=== PATIENT | male | born 1990 | race Caucasian/White ===

== ENCOUNTER 2022-12-29 13:34 | Inpatient (IN) | payer OTHER, SELFPAY ==
--- NOTE | ~2022-12-29 | XR_ITS ---
EXAMINATION: XR ELBOW, LEFT CLINICAL INFORMATION: Trauma. Question dislocation. COMPARISON: None available. TECHNIQUE: Three views of the left elbow. FINDINGS: There is a displaced and angulated comminuted fracture of the distal shaft humerus. This does not involve the articular surface of bone. The elbow joint is maintained. There is no dislocation. XR/XR elbow LT min 3V IMPRESSION: Comminuted fracture of the distal shaft of humerus.
--- NOTE | ~2022-12-29 | FL_ITS ---
EXAMINATION: XR FLUOROSCOPY WITH IMAGES CLINICAL INFORMATION: Humerus fracture COMPARISON: Previous x-ray and CT from yesterday TECHNIQUE: TOTAL DOSE 3.35 MGY DAP 0.0583 MGYM/2 TIME 0.7 MIN LEFT SIDE PERFORMED BY Images: 4. FINDINGS: Images demonstrate plates and screws transfixing the comminuted displaced left distal humeral shaft fracture with improved alignment. FL/FL guidance in OR IMPRESSION: Fluoroscopy guidance for ORIF of left humeral shaft fracture.
--- NOTE | ~2022-12-29 | CT_ITS ---
EXAMINATION: CT LEFT HUMERUS WITHOUT CONTRAST CLINICAL INFORMATION: Fall. Abnormal x-ray COMPARISON: Radiographs left elbow earlier same day TECHNIQUE: Multidetector CT examination of the left humerus is performed without contrast. This CT examination was performed using dose optimization techniques as appropriate, variously including the following: *Automated exposure control *Adjustment of mA and/or kV according to patient size (this includes techniques or standardized protocols for targeted exams where dose is matched to indication/reason for exam; i.e. extremities or head) *Use of iterative reconstruction technique DLP: 216 mGy-cm FINDINGS: Digital welding lead burner: There is a comminuted displaced distal humeral fracture. The proximal and mid humerus are intact. The visualized proximal ulna and radius are intact. The fracture does not appear to involve the articular surfaces of the elbow. There is an angulated comminuted displaced fracture of the distal diaphysis of the humerus. There is angulation apex lateral. CT/CT humerus LT wo IV con IMPRESSION: 1. Displaced comminuted distal humeral fracture without definite involvement of the articular surfaces around the elbow.
[2022-12-29 14:05] VITALS: BP 132/89; BP 138/94; PULSE 75; PULSE 80; RESP 16; O2SAT 100; O2SAT 97; BMI 27.2
--- NOTE | 2022-12-29 14:14 | PC.NURSE ---
ELIAZAR fom home where he was working in his garage and something fell, pt attempted to catch it with his left arm and reports his left elbow ? snapped back. pt reports no feeling in his left hand, pt has + pulses. was given 100mcg of fentanyl by EMS
[2022-12-29] MEDS: HYDROmorphone HCl 1 MG/ML SYRINGE IVPUSH ×3 (14:33→18:41)
--- NOTE | 2022-12-29 14:35 | ED.EXTPRO ---
HPI - Extremity Problem General Chief complaint: Extremity Injury, Upper Stated complaint: ARM INJURY S/P MOVING LARGE BEAM Time Seen by Provider: 12/29/22 14:15 Source: patient, family and EMS Mode of arrival: EMS Limitations: no limitations History of Present Illness HPI Narrative: 32 yo male hx of opiate use disorder - was working and tried to grab 40 to 50lb pole when it snapped his left arm back now has severe pain in left elbow upper arm area. He is R hand dominant. He was given 100mcg of fentanyl by EMS but still in a lot of pain. MD Complaint: extremity pain and extremity swelling Onset (ago): minute(s) (just prior to arrival) Pain Consistency: constant Location: left and upper extremity Quality: aching, dull and constant Radiation: none Relieving factors: immobilization Exacerbating factors: range of motion and palpation Associated symptoms: denies other symptoms Context: other (snapped while trying to catch heavy pole) Related Data Allergies Allergy/AdvReac Type Severity Reaction Status Date / Time No Known Allergies Allergy Verified 12/29/22 14:08 Review of Systems Review of Systems: Constitutional : No Fever, No Chills Cardiovascular : No Chest Pain, No SOB Respiratory : No Cough, No Dyspnea Gastrointestinal : No Nausea, No Vomiting, No Diarrhea, No abdominal Pain Genitourinary : No Dysuria, No Hematuria Musculoskeletal : positive joint pain, No Myalgias, pos Joint Swelling Skin : No Skin lacerations, No rash Neuro : No Weakness, No Numbness, No Loss of Consciousness, No Dizziness, No Headache Psych : No Anxiety/Panic, No Depression All other systems reviewed and are negative [facility] Past Medical History Attestation statement: The following information was validated with the patient. Medical History At risk for abuse of opiates Social History Social History Alcohol intake: current Smoked in Last 30 Days: Yes Use of substances other than those prescribed or required for medical reasons: Yes Substance Use Type: Marijuana Advance Directives: No Advance Directives Information Provided: No Physical Exam Vital Signs: Vital Signs: Last Vital Signs Pulse 85 12/29/22 14:59 Resp 12 12/29/22 14:59 BP 138/94 H 12/29/22 14:05 Pulse Ox 95 12/29/22 14:59 O2 Del Method Room Air 12/29/22 14:59 BMI result Body Mass Index 27.2 Appearance: Alert. Oriented X3. in pain mild acute distress. anxious Eyes: Pupils equal, round and reactive to light. ENT: Pharynx normal. Neck: Normal inspection. Neck supple. CVS: Normal heart rate and rhythm. Pulses normal. Respiratory: No respiratory distress. Breath sounds normal. Abdomen: Soft and nontender. Skin: Skin warm and dry. Normal skin color. Normal skin turgor. Extremities: No lower extremity edema. L lower humerus area there is a contusion noted and deformity no elbow or shoulder dislocation noted, no wrist or shoulder pain, distal NV intact. Neuro: Oriented X 3. No motor deficit. No sensory deficit. Course Course Course Narrative: pain improved with IV dilaudid 2 doses Medications Administered Discontinued Medications Generic Name Dose Route Start Last Admin Trade Name Freq PRN Reason Stop Dose Admin Hydromorphone HCl 1 mg 12/29/22 14:25 12/29/22 14:33 Hydromorphone Hcl 1 Mg/Ml Syringe IVPUSH 12/29/22 14:26 1 mg ONCE ONE Administration Protocol Hydromorphone HCl 1 mg 12/29/22 15:27 12/29/22 15:54 Hydromorphone Hcl 1 Mg/Ml Syringe IVPUSH 12/29/22 15:28 1 mg ONCE ONE Administration Protocol Ketorolac Tromethamine 15 mg 12/29/22 15:27 12/29/22 15:56 Ketorolac Tromethamine 15 Mg/Ml Vial IVPUSH 12/29/22 15:28 15 mg ONCE ONE Administration Medical Decision Making Medical Decision Making [facility] Narrative: 32 yo male R hand dominant here with L arm pain with almost like arm wrestling injury mechanism injury. At this time he is NV intact. I am going to order xrays and IV dilaudid put in sling. 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 Miranda to admit) Lab Data [facility] Lab Attestation statement: I reviewed the patient's lab results. Independent Interpretation I performed an independent interpretation of an: Plain X-Ray (humerus fx) Radiology Impression Discussion of test interpretation with radiology: I have reviewed the radiologist's reading. Independent Historian Clinical information obtained from an independent historian. History obtained from or confirmed by: EMS Critical Care Time Critical Care Time Critical Care Time: Yes Total Critical Care Time: 31 Attestation: repeat IV doses of pain medications. I attest to this time spent taking care of the patient Discharge Plan Discharge Clinical Impression: Fracture, humerus Qualifiers: Encounter type: initial encounter Humerus Location: distal Fracture type: closed Fracture morphology: unspecified fracture morphology Laterality: left Qualified Code(s): S42.402A - Unspecified fracture of lower end of left humerus, initial encounter for closed fracture Patient Disposition: Admitted As Inpatient Referrals: Edgar Miranda MD [Physician] - Stand Alone Forms: Work/School Release
[2022-12-29 14:59] VITALS: PULSE 85; RESP 12; O2SAT 95
[2022-12-29] MEDS: Ketorolac Tromethamine 15 MG/ML VIAL IVPUSH (15:56)
--- NOTE | 2022-12-29 16:44 | PC.NURSE ---
Dr. Miranda at bedside applying sling
[2022-12-29 18:03] LABS: MANUAL DIFF FLAG NO
[2022-12-29 18:05] VITALS: BP 112/58; PULSE 80; RESP 16; O2SAT 97
[2022-12-29 18:16] LABS: Prothrombin Time 12.1 SEC (11.1-13.3)
[2022-12-29 18:22] LABS: Anion Gap 14 (12-20); Blood Urea Nitrogen 15 mg/dL (9-16); Calcium 9.5 mg/dL (8.4-10.2); Carbon Dioxide 27 mmol/L (22-29); Chloride 102 mmol/L (96-108); Creatinine Clr Calc Pharmacy 125.2; Estimated Glomerular Filt Rate > 60; Glucose Random 107 mg/dL (60-115); Potassium 4.1 mmol/L (3.3-5.1); Sodium 139 mmol/L (135-145)
[2022-12-29 18:28] LABS: Basophils Absolute Auto 0.1 X10*3/uL (0.0-0.2); Basophils Percent Auto 0.4 % (0-2); Eosinophils Percent Auto 0.1 % (0-4); Hemoglobin 13.5 g/dl (14.0-18.0); Imm Gran Abs Auto 0.08 X10*3/uL (0.00-0.03); Imm Gran Pct Auto 0.5 % (0.0-0.4); Lymphocytes Absolute Auto 1.5 X10*3/uL (1.2-4.9); Lymphocytes Percent Auto 9.4 % (20-40); Mean Corpuscular HGB Conc 34.6 g/dl (31.0-36.0); Mean Corpuscular Hemoglobin 31.1 pg (27.0-33.0); Mean Corpuscular Volume 89.9 fL (80.0-98.0); Mean Platelet Volume 10.3 fL (9.4-12.4); Monocytes Percent Auto 6.2 % (2-11); Neutrophils Percent Auto 83.4 % (45-73); Platelet Count 244 X10*3/uL (160-400); Red Blood Count 4.34 X10*6/uL (4.60-5.80); Red Cell Distribution Width 12.1 % (11.0-16.0); White Blood Count 15.6 X10*3/uL (4.8-10.8)
[2022-12-29 18:42] VITALS: BP 108/64; PULSE 64; RESP 12; O2SAT 95
--- NOTE | 2022-12-29 19:22 | PM.EVENT ---
Event Note Date of Service: 12/29/22 Event Note: Patient admitted to the orthopedic service. Plan for ORIF left humerus tomorrow morning. NPO after midnight. Sling applied. Formal note to follow. Time Spent With Patient Time: Total time managing care of this patient today ____ minutes.
[2022-12-29] MEDS: ondansetron HCL 4 MG/2 ML VIAL IVPUSH (19:26)
[2022-12-29 19:32] VITALS: BP 129/77; PULSE 76; RESP 16; TEMP 36.4; O2SAT 100
[2022-12-29] MEDS: Lactated Ringers 1,000 ML 100 ML IVCONT (20:35)
[2022-12-29] MEDS: Celecoxib 200 MG CAPSULE PO (20:35)
[2022-12-29] MEDS: Docusate Sodium 100 MG CAPSULE PO (20:35)
[2022-12-29] MEDS: oxyCODONE HCl ER 10 MG TAB.ER.12H PO (20:35)
--- NOTE | 2022-12-29 21:00 | P.CONHOSP_ITS ---
History of Present Illness Data of Consult Service Date: 12/29/22 Primary Care Provider: None Physician HPI Reason for consult: Medical management Patient is a 32-year-old male with a PMH significant for polysubstance use disorder including alcohol and prescription opioids, IBS, and depression who was admitted to the hospital for a displaced, comminuted fracture of the distal shaft of left humerus. Patient was admitted under Orthopedics and underwent ORIF of left humerus, POD0. Hospitalist consult for medical management. Patient seen and evaluated at bedside, resting comfortably in bed. Patient complains of left elbow pain and cramping of biceps. States pain is reasonably controlled with current pain management. Denies numbness or tingling in his left fingers. Is now able to move all extremities. Patient otherwise has no acute medical complaints at this time. Denies chest pain/pressure, palpitations. No shortness of breath. Denies fever, chills, nausea, vomiting, abdominal pain. Denies calf pain. Vital signs stable. Patient reports that he has a distant history of prescription opioid abuse, says he has not abused opioids in over 10 years. Has a more recent history of heavy alcohol use, though he has now been sober for 2 years. Patient says he feels confident in his recovery though would appreciate any Addiction Medicine input as to safe use of opioid analgesics he will be discharged on. Patient currently plans on giving his prescription to his mother so she can distribute and keep track of his medication. Review of Systems 2 Review of Systems: Left elbow pain Left upper extremity muscle cramping Denies numbness and tingling in left upper extremity No chest pain/pressure, palpitations Denies shortness of breath No fever, chills, nausea, vomiting, abdominal pain PMFSH Medical History At risk for abuse of opiates Social History Household Members: None Housing: House Do you presently have visiting nurse or other home services: No Alcohol intake: current Patient Tobacco Use Status: Current everyday Tobacco user e-Cigarette/Vaping Use: Currently Using Substance Use Type: Marijuana Meds Allergies Allergy/AdvReac Type Severity Reaction Status Date / Time No Known Allergies Allergy Verified 12/29/22 14:08 Active Medications: Current Medications Acetaminophen (Acetaminophen 325 Mg Tablet) 650 mg PO Q6H PRN PRN Reason: Pain, Mild (Pain Scale 1-3) Celecoxib (Celecoxib 200 Mg Capsule) 200 mg PO BID [facility] Last Admin: 12/29/22 20:35 Dose: 200 mg Docusate Sodium (Docusate Sodium 100 Mg Capsule) 100 mg PO BID [facility] Last Admin: 12/29/22 20:35 Dose: 100 mg Escitalopram Oxalate (Escitalopram Oxalate 10 Mg Tablet) 10 mg PO DAILY [facility] Hydromorphone HCl (Hydromorphone Hcl 0.5 Mg/0.5 Ml Syringe) 0.25 mg IVPUSH Q4H PRN; Protocol PRN Reason: Pain, Severe (Pain Scale 7-10) Lactated Ringer's (Lr) 1,000 mls @ 100 mls/hr IVCONT .Q10H [facility] Last Infusion: 12/29/22 20:40 Dose: 0 mls/hr Cefazolin Sodium/Dextrose (Ancef) 2 gm in 50 mls @ 100 mls/hr IV PREOP ONE Stop: 12/30/22 09:35 Omeprazole (Omeprazole 20 Mg Capsule.Dr) 20 mg PO DAILY [facility] Ondansetron HCl (Ondansetron Hcl 4 Mg/2 Ml Vial) 4 mg IVPUSH Q8H PRN PRN Reason: Nausea and Vomiting Oxycodone HCl (Oxycodone Hcl Immed Release 5 Mg Tablet) 5 mg PO Q4H PRN PRN Reason: Pain, Moderate(Pain Scale 4-6) Oxycodone HCl (Oxycodone Hcl Er 10 Mg Tab.Er.12h) 10 mg PO BID [facility] Last Admin: 12/29/22 20:35 Dose: 10 mg Sodium Chloride (0.9 % Sodium Chloride Flush 3 Ml Syringe) 3 ml IVFLUSH QSHIFT [facility] Home Medications Medication Instructions Recorded Confirmed Last Taken Type escitalopram oxalate 10 mg tablet 10 mg PO DAILY 12/29/22 12/29/22 12/29/22 History (Lexapro) omeprazole magnesium 20 mg 20 mg PO DAILY 12/29/22 12/29/22 12/29/22 History tablet,delayed release (Prilosec OTC) Physical Exam 2 Vital Signs and Narrative: Vital Signs: Last Vital Signs Temp 97.6 F 12/29/22 19:32 Pulse 76 12/29/22 19:32 Resp 16 12/29/22 19:32 BP 129/77 12/29/22 19:32 Pulse Ox 100 12/29/22 19:32 O2 Del Method Room Air 12/29/22 19:32 BMI result Body Mass Index 27.2 General: AOx3, no acute distress Resp: CTA bilaterally CVS: S1, S2, RRR GI: +BS, NT, no distention Skin: No rash Neuro: Cranial nerves II-XII grossly intact bilaterally. Motor grossly intact bilaterally Extremities: No edema. Left arm in sling with left elbow and forearm and cast Psych: Appropriate affect Results Labs 12/29/22 17:58 12/29/22 17:58 Labs: Laboratory Results - last 24 hr 12/29/22 17:58 MCV 89.9 MCH 31.1 MCHC 34.6 RDW 12.1 Plt Count 244 MPV 10.3 Immature Gran % (Auto) 0.5 H Neut % (Auto) 83.4 H Lymph % (Auto) 9.4 L Bennett % (Auto) 6.2 Eos % (Auto) 0.1 Baso % (Auto) 0.4 Lymph # (Auto) 1.5 Bennett # (Auto) 1.0 Eos # (Auto) 0.0 Baso # (Auto) 0.1 Abs Immat Gran (auto) 0.08 H Absolute Neuts (auto) 13.0 H Absolute Nucleated RBC 0.000 Nucleated RBC % (auto) 0.0 PT 12.1 INR 1.0 Anion Gap 14 Estim Creat Clear Calc 125.2 Estimated GFR > 60 Random Glucose 107 Calcium 9.5 Imaging Radiologist's Impressions: Impressions Elbow X-Ray 12/29/22 14:50 IMPRESSION: Comminuted fracture of the distal shaft of humerus. Humerus CT 12/29/22 17:05 IMPRESSION: 1. Displaced comminuted distal humeral fracture without definite involvement of the articular surfaces around the elbow. Assessment and Plan (1) Fracture, humerus: Qualifiers: Encounter type: initial encounter Fracture morphology: unspecified fracture morphology Fracture type: closed Humerus Location: distal L aterality: left Qualified Code(s): S42.402A - Unspecified fracture of lower end of left humerus, initial encounter for closed fracture Status: Acute Plan Patient is a 32-year-old male with a PMH significant for polysubstance use disorder including alcohol and prescription opioids, IBS, and depression who was admitted to the hospital for a displaced, comminuted fracture of the distal shaft of left humerus. Patient was admitted under Orthopedics and underwent ORIF of left humerus, POD0. Hospitalist consult for medical management. ORIF of left humerus Plan as per Orthopedics History of prescription opioid addiction Patient states he has not abused opioids in 10 years Feels confident in his recovery Would appreciate Addiction Medicine consult to discuss plan for responsible opioid use upon discharge Currently plans on giving his mother any home opioids he may be discharged with IBS Currently diet controlled Continue omeprazole Depression Continue escitalopram Thank you for allowing us to participate in the care of this patient. Signing off at this time. Please let us know if there are any acute complaints or questions. Time Spent With Patient Time: Total time managing care of this patient today ____ minutes.
[2022-12-30] VITALS (16 sets, daily range): BP systolic 111–164; BP diastolic 71–109; PULSE 57–125; RESP 16–22; TEMP 35.8–37.2; O2SAT 94–99
[2022-12-30] MEDS: oxyCODONE HCl Immed Release 5 MG TABLET PO ×4 (00:13→18:16)
[2022-12-30] MEDS: Acetaminophen 325 MG TABLET 650 MG PO ×2 (00:14→07:56)
[2022-12-30] MEDS: HYDROmorphone HCl 0.5 MG/0.5 ML SYRINGE 0.25 MG IVPUSH (04:10)
[2022-12-30 05:56] LABS: MANUAL DIFF FLAG NO
[2022-12-30 06:00] LABS: Basophils Percent Auto 0.4 % (0-2); Eosinophils Absolute Auto 0.2 X10*3/uL (0.0-0.4); Hemoglobin 12.7 g/dl (14.0-18.0); Imm Gran Abs Auto 0.05 X10*3/uL (0.00-0.03); Imm Gran Pct Auto 0.6 % (0.0-0.4); Lymphocytes Absolute Auto 2.1 X10*3/uL (1.2-4.9); Lymphocytes Percent Auto 23.1 % (20-40); Mean Corpuscular HGB Conc 34.3 g/dl (31.0-36.0); Mean Corpuscular Hemoglobin 31.4 pg (27.0-33.0); Mean Corpuscular Volume 91.6 fL (80.0-98.0); Mean Platelet Volume 10.4 fL (9.4-12.4); Monocytes Percent Auto 10.6 % (2-11); Neutrophils Absolute Auto 5.7 x10*3/uL (2.0-8.3); Neutrophils Percent Auto 63.3 % (45-73); Platelet Count 216 X10*3/uL (160-400); Red Blood Count 4.04 X10*6/uL (4.60-5.80); Red Cell Distribution Width 12.3 % (11.0-16.0)
[2022-12-30 06:17] LABS: Anion Gap 11 (12-20); Blood Urea Nitrogen 19 mg/dL (9-16); Calcium 9.5 mg/dL (8.4-10.2); Carbon Dioxide 26 mmol/L (22-29); Chloride 106 mmol/L (96-108); Creatinine Clr Calc Pharmacy 126.6; Estimated Glomerular Filt Rate > 60; Glucose Fasting 99 mg/dL (60-99); Potassium 3.8 mmol/L (3.3-5.1); Sodium 139 mmol/L (135-145)
[2022-12-30] MEDS: Celecoxib 200 MG CAPSULE PO ×2 (07:54→21:23)
[2022-12-30] MEDS: Docusate Sodium 100 MG CAPSULE PO ×2 (07:55→21:23)
[2022-12-30] MEDS: Omeprazole 20 MG CAPSULE.DR PO (07:55)
[2022-12-30] MEDS: oxyCODONE HCl ER 10 MG TAB.ER.12H PO ×2 (07:55→21:23)
[2022-12-30] MEDS: Escitalopram Oxalate 10 MG TABLET PO (07:55)
--- NOTE | 2022-12-30 08:16 | P.HPOP_ITS ---
History of Present Illness History of Present Illness Date of Service: 12/30/22 Chief complaint: left humerus fx Narrative: Karlo Chaudhary is a 32 year old male who sustained an injury to his left humerus while trying to catch a falling post. He presented with deformity and pain and radiographs revealed a comminuted distal humerus fracture. He denies other injury or other medical problems except a remote history of etoh addiction. Review of Systems 2 Review of Systems: Yes all other systems are reviewed and are negative PMFSH Past Medical History Medical History At risk for abuse of opiates Functional capacity: independent ambulation Family History Family history: reviewed and not pertinent Social History Social History Household Members: None Housing: House Do you presently have visiting nurse or other home services: No Alcohol intake: current Patient Tobacco Use Status: Current everyday Tobacco user e-Cigarette/Vaping Use: Currently Using Substance Use Type: Marijuana Meds Allergies Allergy/AdvReac Type Severity Reaction Status Date / Time No Known Allergies Allergy Verified 12/29/22 14:08 Active Medications: Current Medications Acetaminophen (Acetaminophen 325 Mg Tablet) 650 mg PO Q6H PRN PRN Reason: Pain, Mild (Pain Scale 1-3) Last Admin: 12/30/22 07:56 Dose: 650 mg Celecoxib (Celecoxib 200 Mg Capsule) 200 mg PO BID [facility] Last Admin: 12/30/22 07:54 Dose: 200 mg Docusate Sodium (Docusate Sodium 100 Mg Capsule) 100 mg PO BID [facility] Last Admin: 12/30/22 07:55 Dose: 100 mg Escitalopram Oxalate (Escitalopram Oxalate 10 Mg Tablet) 10 mg PO DAILY [facility] Last Admin: 12/30/22 07:55 Dose: 10 mg Hydromorphone HCl (Hydromorphone Hcl 0.5 Mg/0.5 Ml Syringe) 0.25 mg IVPUSH Q4H PRN; Protocol PRN Reason: Pain, Severe (Pain Scale 7-10) Last Admin: 12/30/22 04:10 Dose: 0.25 mg Lactated Ringer's (Lr) 1,000 mls @ 100 mls/hr IVCONT .Q10H [facility] Last Admin: 12/30/22 06:03 Dose: Not Given Cefazolin Sodium/Dextrose (Ancef) 2 gm in 50 mls @ 100 mls/hr IV PREOP ONE Stop: 12/30/22 09:35 Omeprazole (Omeprazole 20 Mg Capsule.Dr) 20 mg PO DAILY [facility] Last Admin: 12/30/22 07:55 Dose: 20 mg Ondansetron HCl (Ondansetron Hcl 4 Mg/2 Ml Vial) 4 mg IVPUSH Q8H PRN PRN Reason: Nausea and Vomiting Oxycodone HCl (Oxycodone Hcl Immed Release 5 Mg Tablet) 5 mg PO Q4H PRN PRN Reason: Pain, Moderate(Pain Scale 4-6) Last Admin: 12/30/22 07:55 Dose: 5 mg Oxycodone HCl (Oxycodone Hcl Er 10 Mg Tab.Er.12h) 10 mg PO BID [facility] Last Admin: 12/30/22 07:55 Dose: 10 mg Sodium Chloride (0.9 % Sodium Chloride Flush 3 Ml Syringe) 3 ml IVFLUSH QSHIFT [facility] Last Admin: 12/30/22 07:54 Dose: Not Given Home Medications Medication Instructions Recorded Confirmed Last Taken Type escitalopram oxalate 10 mg tablet 10 mg PO DAILY 12/29/22 12/29/22 12/29/22 History (Lexapro) omeprazole magnesium 20 mg 20 mg PO DAILY 12/29/22 12/29/22 12/29/22 History tablet,delayed release (Prilosec OTC) Physical Exam 2 Vital Signs: Vital Signs: Last Vital Signs Temp 97.0 F 12/30/22 07:34 Pulse 57 12/30/22 07:34 Resp 16 12/30/22 07:34 BP 129/80 12/30/22 07:34 Pulse Ox 97 12/30/22 07:34 O2 Del Method Room Air 12/30/22 07:34 BMI result Body Mass Index 27.2 Const: General: cooperative, healthy appearing, no acute distress and well groomed Orientation/consciousness: oriented to person and oriented to place HEENT: Head: Yes normal to inspection, Yes normocephalic and Yes atraumatic Eyes: General: appearance normal, both eyes and all related structures A lignment and Position: alignment normal Conjunctivae: conjunctivae normal EOM: EOMs intact bilaterally Neck: Neck: Yes normal visual inspection and Yes trachea midline Resp: Other: No rerpiratory distress Effort & Inspection: normal respiratory effort and able to speak in complete sentences Cardio: Other: Palpable radial pulse with no appreciable rythmic abnormalities GI: Other: No abdominal distension Back/Spine/Pelvis: Cervical Spine: normal cervical lordosis and cervical ROM normal Skin: General skin exam: no rashes or lesions noted Neuro: General: oriented to person, oriented to place and gait normal Extrem: Other: deformity left distal humerus. intact epl/fdp/io rp+2 skin intact Results Labs 12/30/22 05:46 12/30/22 05:46 Labs: Abnormal lab results 12/29/22 12/30/22 Range/Units 17:58 05:46 WBC 15.6 H (4.8-10.8) X10*3/uL RBC 4.34 L 4.04 L (4.60-5.80) X10*6/uL Hgb 13.5 L 12.7 L (14.0-18.0) g/dl Hct 39.0 L 37.0 L (42.0-52.0) % Immature Gran % (Auto) 0.5 H 0.6 H (0.0-0.4) % Neut % (Auto) 83.4 H (45-73) % Lymph % (Auto) 9.4 L (20-40) % Abs Immat Gran (auto) 0.08 H 0.05 H (0.00-0.03) X10*3/uL Absolute Neuts (auto) 13.0 H (2.0-8.3) x10*3/uL Anion Gap 11 L (12-20) BUN 19 H (9-16) mg/dL H & H 12/29/22 12/30/22 Range/Units 17:58 05:46 Hgb 13.5 L 12.7 L (14.0-18.0) g/dl Hct 39.0 L 37.0 L (42.0-52.0) % Coagulation 12/29/22 Range/Units 17:58 INR 1.0 (0.9-1.1) All other labs normal. Diagnostic results Shoulder x-ray: image reviewed (comminuted distal humeral shaft fracture with severe displacement but no intra-articular extension) Assessment and Plan (1) Fracture, humerus: Qualifiers: Encounter type: initial encounter Fracture morphology: unspecified fracture morphology Fracture type: closed Humerus Location: distal L aterality: left Qualified Code(s): S42.402A - Unspecified fracture of lower end of left humerus, initial encounter for closed fracture Status: Acute Plan THis is a healthy 32 yo with a comminuted left humerus fracture. He is RHD. He is otherwise healthy. I splinted and provisionally reduced the fracture. I recommend ORIF. I discussed the procedure iwth the patient and his mom and described and discussed the risks benefits and alternatives including but not limited to the risk of pain, infection, stiffness, NERVE INJURY and the need for further surgery as well as potential medical complications such as blood clots, pulmonary embolism and cardiac complications. He expressed understanding and we will proceed forward. Time Spent With Patient Time: Total time managing care of this patient today __45__ minutes. Quality Stroke Does the patient have a stroke diagnosis?: No VTE Prior VTE?: No VTE Risk Level:: Surgical - low VTE Device Contraindication: N/A - Device Ordered VTE Drug Contraindication: Treatment Not Indicated Procedures Date of Service Date of Service: 12/30/22 Orthopedic Fracture Reduction left humerus: Time out performed: No Side: left Analgesia: none Technique: traction splint Post-reduction x-rays demonstrate: acceptable reduction Post-reduction neuro exam: intact Post-reduction vascular exam: intact Splint applied: Yes Patient tolerated procedure: well
--- NOTE | 2022-12-30 10:27 | P.CONAN_ITS ---
[facility] Active Problems Active Problems: All Active Problems (Updated 12/29/22 @ 15:23 by Michelle Hemphill DO) Fracture, humerus (Acute) Past Medical History Medical History At risk for abuse of opiates Functional capacity: independent ambulation Family History Family history of problems with anesthesia: No Social History Social History Household Members: None Housing: House Do you presently have visiting nurse or other home services: No Alcohol intake: current Patient Tobacco Use Status: Current everyday Tobacco user e-Cigarette/Vaping Use: Currently Using Substance Use Type: Marijuana Meds Allergies Allergy/AdvReac Type Severity Reaction Status Date / Time No Known Allergies Allergy Verified 12/29/22 14:08 Active Medications: Current Medications Acetaminophen (Acetaminophen 325 Mg Tablet) 650 mg PO Q6H PRN PRN Reason: Pain, Mild (Pain Scale 1-3) Last Admin: 12/30/22 07:56 Dose: 650 mg Celecoxib (Celecoxib 200 Mg Capsule) 200 mg PO BID [facility] Last Admin: 12/30/22 07:54 Dose: 200 mg Docusate Sodium (Docusate Sodium 100 Mg Capsule) 100 mg PO BID [facility] Last Admin: 12/30/22 07:55 Dose: 100 mg Escitalopram Oxalate (Escitalopram Oxalate 10 Mg Tablet) 10 mg PO DAILY [facility] Last Admin: 12/30/22 07:55 Dose: 10 mg Hydromorphone HCl (Hydromorphone Hcl 0.5 Mg/0.5 Ml Syringe) 0.25 mg IVPUSH Q4H PRN; Protocol PRN Reason: Pain, Severe (Pain Scale 7-10) Last Admin: 12/30/22 04:10 Dose: 0.25 mg Lactated Ringer's (Lr) 1,000 mls @ 100 mls/hr IVCONT .Q10H [facility] Last Admin: 12/30/22 06:03 Dose: Not Given Omeprazole (Omeprazole 20 Mg Capsule.Dr) 20 mg PO DAILY [facility] Last Admin: 12/30/22 07:55 Dose: 20 mg Ondansetron HCl (Ondansetron Hcl 4 Mg/2 Ml Vial) 4 mg IVPUSH Q8H PRN PRN Reason: Nausea and Vomiting Oxycodone HCl (Oxycodone Hcl Immed Release 5 Mg Tablet) 5 mg PO Q4H PRN PRN Reason: Pain, Moderate(Pain Scale 4-6) Last Admin: 12/30/22 07:55 Dose: 5 mg Oxycodone HCl (Oxycodone Hcl Er 10 Mg Tab.Er.12h) 10 mg PO BID [facility] Last Admin: 12/30/22 07:55 Dose: 10 mg Sodium Chloride (0.9 % Sodium Chloride Flush 3 Ml Syringe) 3 ml IVFLUSH QSHIFT [facility] Last Admin: 12/30/22 07:54 Dose: Not Given Home Medications Medication Instructions Recorded Confirmed Last Taken Type escitalopram oxalate 10 mg tablet 10 mg PO DAILY 12/29/22 12/29/22 12/29/22 History (Lexapro) omeprazole magnesium 20 mg 20 mg PO DAILY 12/29/22 12/29/22 12/29/22 History tablet,delayed release (Prilosec OTC) Exam Exam Date and Time: December 30, 2022 1027 Height,Weight and Vital Signs: Height 5 ft 11 in Weight 88.451 kg Last Vital Signs Temp 97.0 F 12/30/22 07:34 Pulse 57 12/30/22 07:34 Resp 16 12/30/22 07:34 BP 129/80 12/30/22 07:34 Pulse Ox 97 12/30/22 07:34 O2 Del Method Room Air 12/30/22 07:34 Pertinent Lab Results Pertinent Lab Results: Laboratory Tests 12/29/22 12/30/22 17:58 05:46 WBC 15.6 H 9.0 RBC 4.34 L 4.04 L Hgb 13.5 L 12.7 L Hct 39.0 L 37.0 L MCV 89.9 91.6 MCH 31.1 31.4 MCHC 34.6 34.3 RDW 12.1 12.3 Plt Count 244 216 MPV 10.3 10.4 Immature Gran % (Auto) 0.5 H 0.6 H Neut % (Auto) 83.4 H 63.3 Lymph % (Auto) 9.4 L 23.1 [place] % (Auto) 6.2 10.6 Eos % (Auto) 0.1 2.0 Baso % (Auto) 0.4 0.4 Lymph # (Auto) 1.5 2.1 [place] # (Auto) 1.0 1.0 Eos # (Auto) 0.0 0.2 Baso # (Auto) 0.1 0.0 Abs Immat Gran (auto) 0.08 H 0.05 H Absolute Neuts (auto) 13.0 H 5.7 Absolute Nucleated RBC 0.000 0.000 Nucleated RBC % (auto) 0.0 0.0 PT 12.1 INR 1.0 Sodium 139 139 Potassium 4.1 3.8 Chloride 102 106 Carbon Dioxide 27 26 Anion Gap 14 11 L BUN 15 19 H Creatinine 0.91 0.90 Estim Creat Clear Calc 125.2 126.6 Estimated GFR > 60 > 60 Random Glucose 107 Fasting Glucose 99 Calcium 9.5 9.5 Airway Mallampati Class: II TM Dist: >3cm Neck ROM: Full Heart: RRR Lungs: CTA Assessment and Plan Final Anesthetic Review Family History of Problems with Anesthesia: No ASA Class: II and Emergency Final Preanesthetic Review: Meds/Allgs Chart Reviewed and Consent Obtained/Reviewed Patient Risk: Low Procedure Risk: Low Assessment/Block/Sedation in SS: Assess/Block/Sedation-SS (left supraclavicular nerve block) Anesthetic Plan Anesthetic Plan: GA Disposition: Standard PACU
--- NOTE | 2022-12-30 10:29 | HO.ANESPROP2 ---
[facility] Active Problems Active Problems: All Active Problems Fracture, humerus (Acute) Past Medical History Medical History At risk for abuse of opiates Functional capacity: independent ambulation Family History Family history of problems with anesthesia: No Surgical History History of Problems with Anesthesia: No Social History Social History Household Members: None Housing: House Do you presently have visiting nurse or other home services: No Alcohol intake: current Patient Tobacco Use Status: Current everyday Tobacco user e-Cigarette/Vaping Use: Currently Using Substance Use Type: Marijuana Meds Allergies Allergy/AdvReac Type Severity Reaction Status Date / Time No Known Allergies Allergy Verified 12/29/22 14:08 Active Medications: Current Medications Acetaminophen (Acetaminophen 325 Mg Tablet) 650 mg PO Q6H PRN PRN Reason: Pain, Mild (Pain Scale 1-3) Last Admin: 12/30/22 07:56 Dose: 650 mg Celecoxib (Celecoxib 200 Mg Capsule) 200 mg PO BID [facility] Last Admin: 12/30/22 07:54 Dose: 200 mg Docusate Sodium (Docusate Sodium 100 Mg Capsule) 100 mg PO BID [facility] Last Admin: 12/30/22 07:55 Dose: 100 mg Escitalopram Oxalate (Escitalopram Oxalate 10 Mg Tablet) 10 mg PO DAILY [facility] Last Admin: 12/30/22 07:55 Dose: 10 mg Hydromorphone HCl (Hydromorphone Hcl 0.5 Mg/0.5 Ml Syringe) 0.25 mg IVPUSH Q4H PRN; Protocol PRN Reason: Pain, Severe (Pain Scale 7-10) Last Admin: 12/30/22 04:10 Dose: 0.25 mg Lactated Ringer's (Lr) 1,000 mls @ 100 mls/hr IVCONT .Q10H [facility] Last Admin: 12/30/22 06:03 Dose: Not Given Omeprazole (Omeprazole 20 Mg Capsule.Dr) 20 mg PO DAILY [facility] Last Admin: 12/30/22 07:55 Dose: 20 mg Ondansetron HCl (Ondansetron Hcl 4 Mg/2 Ml Vial) 4 mg IVPUSH Q8H PRN PRN Reason: Nausea and Vomiting Oxycodone HCl (Oxycodone Hcl Immed Release 5 Mg Tablet) 5 mg PO Q4H PRN PRN Reason: Pain, Moderate(Pain Scale 4-6) Last Admin: 12/30/22 07:55 Dose: 5 mg Oxycodone HCl (Oxycodone Hcl Er 10 Mg Tab.Er.12h) 10 mg PO BID [facility] Last Admin: 12/30/22 07:55 Dose: 10 mg Sodium Chloride (0.9 % Sodium Chloride Flush 3 Ml Syringe) 3 ml IVFLUSH QSHIFT [facility] Last Admin: 12/30/22 07:54 Dose: Not Given Home Medications Medication Instructions Recorded Confirmed Last Taken Type escitalopram oxalate 10 mg tablet 10 mg PO DAILY 12/29/22 12/29/22 12/29/22 History (Lexapro) omeprazole magnesium 20 mg 20 mg PO DAILY 12/29/22 12/29/22 12/29/22 History tablet,delayed release (Prilosec OTC) Exam Exam Date and Time: December 30, 2022 1029 Height,Weight and Vital Signs: Height 5 ft 11 in Weight 88.451 kg Last Vital Signs Temp 97.0 F 12/30/22 07:34 Pulse 57 12/30/22 07:34 Resp 16 12/30/22 07:34 BP 129/80 12/30/22 07:34 Pulse Ox 97 12/30/22 07:34 O2 Del Method Room Air 12/30/22 07:34 Pertinent Lab Results Pertinent Lab Results: Laboratory Tests 12/29/22 12/30/22 17:58 05:46 WBC 15.6 H 9.0 RBC 4.34 L 4.04 L Hgb 13.5 L 12.7 L Hct 39.0 L 37.0 L MCV 89.9 91.6 MCH 31.1 31.4 MCHC 34.6 34.3 RDW 12.1 12.3 Plt Count 244 216 MPV 10.3 10.4 Immature Gran % (Auto) 0.5 H 0.6 H Neut % (Auto) 83.4 H 63.3 Lymph % (Auto) 9.4 L 23.1 [place] % (Auto) 6.2 10.6 Eos % (Auto) 0.1 2.0 Baso % (Auto) 0.4 0.4 Lymph # (Auto) 1.5 2.1 [place] # (Auto) 1.0 1.0 Eos # (Auto) 0.0 0.2 Baso # (Auto) 0.1 0.0 Abs Immat Gran (auto) 0.08 H 0.05 H Absolute Neuts (auto) 13.0 H 5.7 Absolute Nucleated RBC 0.000 0.000 Nucleated RBC % (auto) 0.0 0.0 PT 12.1 INR 1.0 Sodium 139 139 Potassium 4.1 3.8 Chloride 102 106 Carbon Dioxide 27 26 Anion Gap 14 11 L BUN 15 19 H Creatinine 0.91 0.90 Estim Creat Clear Calc 125.2 126.6 Estimated GFR > 60 > 60 Random Glucose 107 Fasting Glucose 99 Calcium 9.5 9.5 Assessment and Plan Assessment Anesthesia Assessment: Anesthesia Plan Discussed Final Anesthetic Review Family History of Problems with Anesthesia: No History of Problems with Anesthesia: No NPO: Yes ASA Class: II and Emergency Final Preanesthetic Review: Meds/Allgs Chart Reviewed, Consent Obtained/Reviewed and Anes Risks/Benef Reviewed Patient Risk: Low Procedure Risk: Low Assessment/Block/Sedation in SS: Assess/Block/Sedation-SS Anesthetic Plan Anesthetic Plan: GA Disposition: Standard PACU
--- NOTE | 2022-12-30 11:09 | MHC.CM.PN ---
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
--- NOTE | 2022-12-30 11:59 | PM.EVENT ---
Event Note Date of Service: 12/30/22 Event Note: Addiction consult placed for patient Attempted to meet with patient, however he was in surgery at the time Will follow up 12/31 or 01/01 Time Spent With Patient Time: Total time managing care of this patient today ____ minutes.
[2022-12-30] MEDS: Acetaminophen 1,000 MG/100 ML PIGGYBACK 400 MG IV (14:08)
[2022-12-30] MEDS: fentaNYL citrate/PF 100 MCG/2 ML VIAL 25 MCG IVPUSH ×3 (14:17→14:28)
--- NOTE | 2022-12-30 14:23 | PM.OP ---
Brief Operative Note Date of Service: 12/30/22 Pre-op diagnosis: left distal humerus fracture Post-op diagnosis: same Procedure: ORIF left distal humerus fracture Implants: Cassius direct medial and posterolateral locking plate Surgeon: Edgar Miranda MD Anesthesia: GETA and regional Was an Retirement Plan Specialist used for this Procedure?: Yes Retirement Plan Specialist: Daphne Skinner Estimated blood loss (mL): 400 IV fluids (mL): 1,800 Pathology: none sent Condition: stable Disposition: PACU
[2022-12-30] MEDS: HYDROmorphone HCl 0.5 MG/0.5 ML SYRINGE IVPUSH (14:37)
[2022-12-30] MEDS: Lactated Ringers 1,000 ML 100 ML IVCONT (15:30)
[2022-12-31] MEDS: Lactated Ringers 1,000 ML 100 ML IVCONT (00:26)
[2022-12-31 03:48] VITALS: RESP 20
[2022-12-31] MEDS: HYDROmorphone HCl 0.5 MG/0.5 ML SYRINGE IVPUSH (04:57)
[2022-12-31] MEDS: oxyCODONE HCl Immed Release 5 MG TABLET PO ×3 (05:09→13:50)
[2022-12-31] MEDS: Acetaminophen 325 MG TABLET 650 MG PO (05:10)
[2022-12-31 05:56] LABS: MANUAL DIFF FLAG NO
[2022-12-31 06:01] LABS: Basophils Percent Auto 0.2 % (0-2); Eosinophils Percent Auto 0.2 % (0-4); Hematocrit 32.2 % (42.0-52.0); Hemoglobin 10.9 g/dl (14.0-18.0); Imm Gran Abs Auto 0.06 X10*3/uL (0.00-0.03); Imm Gran Pct Auto 0.5 % (0.0-0.4); Lymphocytes Absolute Auto 2.5 X10*3/uL (1.2-4.9); Lymphocytes Percent Auto 19.4 % (20-40); Mean Corpuscular HGB Conc 33.9 g/dl (31.0-36.0); Mean Corpuscular Hemoglobin 30.8 pg (27.0-33.0); Mean Platelet Volume 10.3 fL (9.4-12.4); Monocytes Absolute Auto 1.2 X10*3/uL (0.1-1.2); Monocytes Percent Auto 9.4 % (2-11); Neutrophils Absolute Auto 9.1 x10*3/uL (2.0-8.3); Neutrophils Percent Auto 70.3 % (45-73); Platelet Count 232 X10*3/uL (160-400); Red Blood Count 3.54 X10*6/uL (4.60-5.80); Red Cell Distribution Width 12.1 % (11.0-16.0); White Blood Count 12.9 X10*3/uL (4.8-10.8)
[2022-12-31 06:23] LABS: Anion Gap 11 (12-20); Blood Urea Nitrogen 12 mg/dL (9-16); Calcium 9.6 mg/dL (8.4-10.2); Carbon Dioxide 25 mmol/L (22-29); Chloride 106 mmol/L (96-108); Creatinine Clr Calc Pharmacy 144.2; Estimated Glomerular Filt Rate > 60; Glucose Fasting 115 mg/dL (60-99); Potassium 3.6 mmol/L (3.3-5.1); Sodium 138 mmol/L (135-145)
[2022-12-31 07:35] VITALS: BP 149/93; PULSE 78; RESP 20; TEMP 36.3; O2SAT 95
[2022-12-31] MEDS: Docusate Sodium 100 MG CAPSULE PO (07:47)
[2022-12-31] MEDS: oxyCODONE HCl ER 10 MG TAB.ER.12H PO (07:47)
[2022-12-31] MEDS: Omeprazole 20 MG CAPSULE.DR PO (07:47)
[2022-12-31] MEDS: Celecoxib 200 MG CAPSULE PO (07:47)
[2022-12-31] MEDS: Escitalopram Oxalate 10 MG TABLET PO (07:48)
--- NOTE | 2022-12-31 12:04 | P.DS_ITS ---
DS: Providers Provider Date of Service: 12/31/22 Date of admission: 12/29/22 19:10 Primary care physician: None Physician Consults: 12/29/22 19:32 Consult to Hospitalist Routine Comment: Consulting Provider: Hospitalist Reason For Exam: routine medical management - substance abuse 12/29/22 21:15 Addiction Medicine Routine Consulting Provider: Addiction Covering Reason for consultation: Remote hx of prescription opioid abuse, plan for d/c on opioids DS: Diagnosis Discharge Diagnosis (1) Fracture, humerus: Status: Acute DS: Summary Hospital Course Hospital Course: The patient underwent a successful ORIF left humerus , was transferred to PACU and then to the floor to recover. During their stay, their vitals were stable, afebrile at 97.4. Labs were unremarkable, H/H 10.9/32.3. Prior to discharge, his dressing and splint was intact. dressing should remain intact and dry at all times. Any concerns with the dressing, please contact orthopedic office. No showering. The plan is to be discharged home. Time Spent with Patient Time attestation: Total time managing care of this patient today ____ minutes. Discharge coordination time: Less than 30 minutes Quality: Safe Use of Opioids Does Pt have an Active Cancer Diagnosis on the Problem List?: No Quality: Stroke Does the patient have a stroke diagnosis?: No Physical Exam Vital Signs: Vital Signs: Last Vital Signs Temp 97.4 F 12/31/22 07:35 Pulse 78 12/31/22 07:35 Resp 20 12/31/22 07:35 BP 149/93 H 12/31/22 07:35 Pulse Ox 95 12/31/22 07:35 O2 Del Method Room Air 12/31/22 07:35 O2 Flow Rate 2 12/30/22 15:03 BMI result Body Mass Index 27.2 Const: General: cooperative, healthy appearing and no acute distress Resp: Effort & Inspection: normal respiratory effort and able to speak in complete sentences Cardio: Rate: regular rate Peripheral pulses: Peripheral pulses 2+ throughout GI: Palpation (GI): Soft to palpation Skin: General skin exam: no rashes or lesions noted Extrem: Other: Left arm splint intact. He has good sensation and cap refill of all digits. DS: Data Data Completed and Pending Labs on day of discharge: Laboratory Results - last 24 hr 12/31/22 05:52 WBC 12.9 H RBC 3.54 L Hgb 10.9 L Hct 32.2 L MCV 91.0 MCH 30.8 MCHC 33.9 RDW 12.1 Plt Count 232 MPV 10.3 Immature Gran % (Auto) 0.5 H Neut % (Auto) 70.3 Lymph % (Auto) 19.4 L [place] % (Auto) 9.4 Eos % (Auto) 0.2 Baso % (Auto) 0.2 Lymph # (Auto) 2.5 [place] # (Auto) 1.2 Eos # (Auto) 0.0 Baso # (Auto) 0.0 Abs Immat Gran (auto) 0.06 H Absolute Neuts (auto) 9.1 H Absolute Nucleated RBC 0.000 Nucleated RBC % (auto) 0.0 Sodium 138 Potassium 3.6 Chloride 106 Carbon Dioxide 25 Anion Gap 11 L BUN 12 Creatinine 0.79 Estim Creat Clear Calc 144.2 Estimated GFR > 60 Fasting Glucose 115 H Calcium 9.6 Discharge Plan Discharge Anticipated Discharge Date/Time: 12/31/22 12:00 Patient Disposition: Home, Self-Care Discharge Diagnosis: ORIF left humerus Referrals: Edgar Miranda MD [Physician] - 1 Week Discharge Medications: New acetaminophen 325 mg tablet 650 mg PO Q6H PRN (Reason: Pain, Mild (Pain Scale 1-3)) 30 Days Qty: 240 0RF celecoxib 200 mg Capsule 200 mg PO BID 30 Days Qty: 60 0RF oxycodone 5 mg tablet 5 mg PO Q4H PRN (Reason: pain) 7 Days Qty: 42 0RF Rx Instructions: Partial Fill upon patient request. Continued escitalopram oxalate [Lexapro] 10 mg Tablet 10 mg PO DAILY omeprazole magnesium [Prilosec OTC] 20 mg Tablet,Delayed Release (Dr/Ec) 20 mg PO DAILY Discharge Orders: Discharge Order (Routine); Ordered 12/31/22 Ordered By: Jose A Tai Diet: Regular diet Activity on Discharge: Use Splints or Immobilizers Stand Alone Forms: Patient Portal Discharge page, Work/School Release Care Plan Goals: Restore function of joint Health Concerns: none Plan of Treatment: as noted Assessment: * Keep splint clean, dry and intact * Elevate the arm on pillows when resting and sleeping * Perform Hand and wrist ROM-making and fist and opening fingers * Call the office if there are any questions or concerns. If splint is too tight or too loose. If it becomes saturated. * Follow up with our office in 1 wk Discharge Date/Time: 12/31/22 13:53
--- NOTE | 2022-12-31 12:13 | MHC.CM.PN ---
PT TO DC HOME TODAY WITH NO SERVICES PT WILL ARRANGE TRANSPORT
--- NOTE | 2022-12-31 15:53 | PM.EVENT ---
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 This writer technical publications unable to to meet with patient at [facility], however called patient at home. Patient reporting managable pain at this time, taking PRN medications as prescribed, but also planning to use non opioids in between and/or space dosing out when possible. He identifies strong family and social supports including AA and his girlfriend. He reports that he has 6 oxycodone tabs at home and his girlfriends mother is holding the remainder of the prescription. At this time patient feels confident in his recovery and numerous supports around him. This writer technical publications provided patient CCC number should he have any questions or concerns related to recovery. Patient agreeable with plan. Time Spent With Patient Time: Total time managing care of this patient today _25___ minutes.
--- NOTE | 2023-01-15 10:42 | W.PM.OPN ---
Operative Note Operative Note Date of Service: 12/30/22 Narrative: Date of Service: 12/30/22 Pre-op diagnosis: left distal humerus fracture Post-op diagnosis: same Procedure: ORIF left distal humerus fracture Implants: Cassius direct medial and posterolateral locking plate Surgeon: Edgar Miranda MD Anesthesia: GETA and regional Was an Program Manager used for this Procedure?: Yes Program Manager: Daphne Skinner Estimated blood loss (mL): 400 IV fluids (mL): 1,800 Pathology: none sent Condition: stable Disposition: PACU Procedure in detail: Patient was brought to the operating room and placed prone on the surgical table. She was prepped and draped in standard sterile fashion and a time out was called to identify proper site, proper procedure and IV antibiotics per weight were administered. I then made a standard posterior triceps splitting procedure to the distal humerus. I cleared slightly radially and encountered a displaced extra-articular distal humerus fracture. I debrided this both with sharp and blunt dissection to clean the edges of the fracture. Blunt tissue retractors were placed and care was taken to avoid the neurovascular structures both ulnar and proximally. I began by reducing the fracture with bone tenaculum. Two lag screws were then placed from ulnar to radial to provisionally reduce the fracture. I selected an 11 hole direct medial plate and dissected distally around the medial epicondyle. Again care was taken to avoid the ulnar nerve at this location. Of the plate was placed and biplanar fluoroscopy confirmed the appropriate. Standard AO technique was used to place screws bicortically from ulnar to radial reapproximating the normal anatomy. I was satisfied with the fixation and elected to place an additional posterolateral plate again a 13 hole locking plate was placed on biplanar fluoroscopy was used to confirm location. This helped secure the construct proximal to the fracture I had 8 cortices with this plate and 8 cortices with the medial plate. I was satisfied with the position of the plate, the fracture reduction and the screw length. I irrigated copiously took the elbow through range of motion. There worst no impediment to range of motion and the construct was stable. Biplanar fluoroscopy confirmed this as did visual inspection. I copiously irrigated and then closed in a layered fashion with ben on the skin. Patient was placed into a well-padded posterior splint, extubated brought to the recovery room in stable condition. There were no known complications.
== END 2022-12-31 13:53 | disposition home or self-care (01) | DRG 494 ==
LOC: HO.ED 17:06 → HO.EDOVER 19:14 → HO.S3 19:24
PROVIDERS: Orthopaedic Surgery; Admitting Provider Physician Assistant; Emergency Provider Emergency Medicine; Visit Provider Physician Assistant
PROC: 0PSG04Z Reposition Left Humeral Shaft with Internal Fixation Device, Open Approach (ICD-10-PCS; principal; 2022-12-30 09:00)
DX: S42.402A Unspecified fracture of lower end of left humerus, initial encounter for closed fracture (principal); F17.210 Nicotine dependence, cigarettes, uncomplicated; X58.XXXA Exposure to other specified factors, initial encounter; F11.11 Opioid abuse, in remission; F32.A Depression, unspecified; K58.9 Irritable bowel syndrome, unspecified; Z71.6 Tobacco abuse counseling; Z79.899 Other long term (current) drug therapy
CPT/HCPCS: 36415; 73080; 73200; 80048; 85025; 85610; 99285; C1713; J0131; J0690; J1100; J1170; J1885; J2250; J2405; J2795; J3010

== ENCOUNTER → 2022-12-29 19:10 | Outpatient (BNV) | payer OTHER, SELFPAY | PROVIDERS: Admitting Provider Physician Assistant; Emergency Provider Emergency Medicine; Visit Provider Student in an Organized Health Care Education/Training Program | DX: S42.402A Unspecified fracture of lower end of left humerus, initial encounter for closed fracture (principal) | CPT/HCPCS: 99222 ==

== ENCOUNTER → 2022-12-29 19:10 | Outpatient (BNV) | payer OTHER, SELFPAY | PROVIDERS: Admitting Provider Physician Assistant; Emergency Provider Emergency Medicine; Visit Provider Physician Assistant | DX: S42.402A Unspecified fracture of lower end of left humerus, initial encounter for closed fracture (principal) | CPT/HCPCS: 24586; 99024; 99232; 99499 ==

== ENCOUNTER 2023-01-05 09:04 | Outpatient (AMB) | payer OTHER, SELFPAY ==
--- NOTE | 2023-01-05 09:05 | A.OFFVIS_ITS ---
Intake Intake Visit Reasons: PO- left humerus fx-DOS 12/30/22 Intake Note: Karlo is a 33 year old male who presents today for a post op appointment s/p ORIF left distal humerus, 12/30/22 NE. Patient reports his pain is a 5/10 on the pain scale. He states that his swelling is going down. Denies numbness and tingling. Allergies No Known Allergies Allergy (Verified 01/05/23 09:07) HPI PO- left humerus fx-DOS 12/30/22 HPI Details 33-year-old male who presents in the off ice today 6 days status post left distal humerus ORIF, which was performed on 12/30/[address] Miranda. The patient reports his pain is a 5/10 while in the office today. He confirms his edema has gone down. He denies numbness or tingling. [facility] Medical History At risk for abuse of opiates Social History Household Members: None Housing: House Do you presently have visiting nurse or other home services: No Alcohol intake: current Patient Tobacco Use Status: Current everyday Tobacco user e-Cigarette/Vaping Use: Currently Using Substance Use Type: Marijuana service: No Review of Systems Const All systems reviewed & are unremarkable except as noted in HPI and below Physical Exam Const General: cooperative, healthy appearing and no acute distress Resp Effort & Inspection: normal respiratory effort and able to speak in complete sentences Cardio Rate: regular rate Peripheral pulses: Peripheral pulses 2+ throughout GI Palpation (GI): Soft to palpation Skin Lesions: no lesions Rashes: no rashes Extrem Other: Left elbow: Posterior incision site is clean, dry, and intact. No surrounding erythema or drainage. No signs of infection. [place] intact. Able to slightly flex and extend at the elbow. Full hand ROM. Full wrist ROM. Sensation intact. Capillary refill is brisk. Radial pulse intact. Office Procedures Casting/Splints 08063-Sxac arm splint application Procedure code (CPT) selection complete Assessment & Plan Assessment & Plan (1) Fracture of distal end of left humerus: Comment: Left distal humerus ORIF 12/30/2022 [place] Code(s): S42.402A - Unspecified fracture of lower end of left humerus, initial encounter for closed fracture Qualifiers: Encounter type: subsequent encounter Fracture healing: with routine healing Fracture morphology: unspecified fracture morphology Fracture type: closed Qualified Code(s): S42.402D - Unspecified fracture of lower end of left humerus, subsequent encounter for fracture with routine healing Plan Mr. Chaudhary is a 33-year-old male who presents in the office today 6 days status post left distal humerus ORIF, which was performed on 12/30/[address] Miranda. The patient reports his pain is a 5/10 while in the office today. He confirms his edema has gone down. He denies numbness or tingling. The wound was checked while in the office today. There were no signs of infection. The wound was redressed with a long Aquacel dressing. He was placed back into a custom made posterior splint and sling which he will continue to wear for the next week. The ben will remain intact for an additional week. Follow up will be in 1 week for a wound check and anticipation of staple removal, or sooner if needed. Patient Instructions: Scribed for Daphne Skinner PA-C by Karina Balderrama medical psychotherapist, on 01/05/2023 at 9:05 am, EST. Coding Level of Care Code Global (41122) Diagnoses Closed fracture of distal end of left humerus with routine healing, unspecified fracture morphology, subsequent encounter S42.402D Encounter type: subsequent encounter Fracture healing: with routine healing Fracture morphology: unspecified fracture morphology Fracture type: closed CPT Codes Splint - CPT: 28270-Iqzh arm splint application ([id number])
== END 2023-01-05 10:03 | disposition home or self-care (01) ==
PROVIDERS: Visit Provider Physician Assistant
DX: S42.402D Unspecified fracture of lower end of left humerus, subsequent encounter for fracture with routine healing (principal)
CPT/HCPCS: 29105; 99024

== ENCOUNTER → 2023-01-05 09:04 | Outpatient (BNVA) | payer OTHER, SELFPAY | PROVIDERS: Visit Provider Physician Assistant | DX: S42.402D Unspecified fracture of lower end of left humerus, subsequent encounter for fracture with routine healing (principal) | CPT/HCPCS: 29105 ==

== ENCOUNTER 2023-01-12 07:25 | Outpatient (REF) | payer OTHER, SELFPAY ==
--- NOTE | ~2023-01-12 | XR_ITS ---
EXAMINATION: XR HUMERUS, LEFT CLINICAL INFORMATION: Fracture, left humerus. COMPARISON: Multiple prior examinations including intraoperative images dated 12/30/2022. TECHNIQUE: AP and lateral views of the left humerus. FINDINGS: Postoperative changes noted with skin ben as well as plate and screw fixation noted along the distal humerus crossing the area of previously noted humerus fracture. There is marked improvement in the alignment compared with the preoperative examinations in unchanged alignment compared with the intraoperative images obtained after orthopedic fixation. Hardware intact. Elbow joint unremarkable. Surrounding bone and soft tissues unremarkable. XR/XR humerus LT IMPRESSION: Postoperative changes of the left humerus stable compared with the previous intraoperative imaging after orthopedic fixation.
== END 2023-01-12 07:26 | disposition home or self-care (01) ==
LOC: HO.HOSX 07:25
PROVIDERS: Visit Provider Physician Assistant
DX: S42.402A Unspecified fracture of lower end of left humerus, initial encounter for closed fracture (principal)
CPT/HCPCS: 73060

== ENCOUNTER 2023-01-12 13:02 | Outpatient (AMB) | payer OTHER, SELFPAY ==
--- NOTE | 2023-01-12 13:24 | MHC.OFFVIS ---
Intake Vital Signs 01/12/23 13:27 Height 5 ft 11 in Weight 190 lb BMI 26.5 Intake Visit Reasons: PO- left humerus fx-DOS 12/30/22/Lvm Intake Note: Karlo 33 year old male presents today for a post op appointment for his ORIF left distal humerus, 12/30/22 NE. States he is doing well. He does have some muscle pain but over all doing well. Denies numbness or tingling. Allergies No Known Allergies Allergy (Verified 01/12/23 13:26) HPI PO- left humerus fx-DOS 12/30/22/Lvm HPI Details 33-year-old male who presents in the office today for a wound check; 13 days status post left distal humerus ORIF, which was performed on 12/30/[address] Miranda. He states he has been doing good and feels better then last week. He claims to have some muscle pain. He denies numbness or tingling. [facility] Medical History At risk for abuse of opiates Social History Household Members: None Housing: House Do you presently have visiting nurse or other home services: No Alcohol intake: current Patient Tobacco Use Status: Current everyday Tobacco user e-Cigarette/Vaping Use: Currently Using Substance Use Type: Marijuana service: No Review of Systems Const All systems reviewed & are unremarkable except as noted in HPI and below Physical Exam Vital Signs: BMI result Body Mass Index 26.5 Const General: cooperative, healthy appearing and no acute distress Resp Effort & Inspection: normal respiratory effort and able to speak in complete sentences Cardio Rate: regular rate Peripheral pulses: Peripheral pulses 2+ throughout GI Palpation (GI): Soft to palpation Skin Lesions: no lesions Rashes: no rashes Extrem Other: Left distal humerus: Incision site is clean, dry, and intact. [place] intact. Able to flex and extend at the elbow but limited due to pain and stiffness. NVI. Left hand: Normal to inspection. No ecchymosis, erythema, or edema. Able to perform full finger flexion, extension, abduction, adduction, finger cross, okay sign, and thumbs up without deficit. Able to make a closed fist. Sensation intact. Capillary refill is brisk. Radial pulse intact. Assessment & Plan Assessment & Plan (1) Fracture of distal end of left humerus: Comment: Left distal humerus ORIF 12/30/2022 NE Code(s): S42.402A - Unspecified fracture of lower end of left humerus, initial encounter for closed fracture Qualifiers: Encounter type: subsequent encounter Fracture healing: with routine healing Fracture morphology: unspecified fracture morphology Fracture type: closed Qualified Code(s): S42.402D - Unspecified fracture of lower end of left humerus, subsequent encounter for fracture with routine healing Plan Mr. Chaudhary is a 33-year-old male who presents in the office today for a wound check; 13 days status post left distal humerus ORIF, which was performed on 12/30/[address] Miranda. He states he has been doing good and feels better then last week. He claims to have some muscle pain. He denies numbness or tingling. [place] were removed and steri-stripes were applied. The patient will be place in a ROM brace, off the shelf, while in the office today. He was referred to physical therapy to begin to work on gentle ROM. No ROM restrictions and no lifting. The case was discussed with Dr. Miranda. He was educated to refrain from heavy lifting. He was also educated on signs of infection, which are as follows but not limited to erythema, edema, drainage, or warmth. If he is to experience any of these symptoms he is to contact the office immediately or present to the ED. Follow up will be in 4 weeks, or sooner if needed. X-rays of the left elbow obtained while in the office today and reviewed by me, Daphne Skinner PA-C, revealed orthopedic hardware intact with routine healing. Orders: Orders XR humerus LT Today S42.402A - Unspecified fracture of lower end of left humerus, initial encounter for closed fracture Patient Instructions: Scribed for Daphne Skinner PA-C by Karina Balderrama medical billing specialist, on 01/11/2023 at 1:03 pm, EST. Coding Level of Care Code Global (02431) Diagnoses Closed fracture of distal end of left humerus with routine healing, unspecified fracture morphology, subsequent encounter S42.402D Encounter type: subsequent encounter Fracture healing: with routine healing Fracture morphology: unspecified fracture morphology Fracture type: closed
[2023-01-12 13:27] VITALS: BMI 26.5
== END 2023-01-12 14:01 | disposition home or self-care (01) ==
PROVIDERS: Visit Provider Physician Assistant
DX: S42.402D Unspecified fracture of lower end of left humerus, subsequent encounter for fracture with routine healing (principal)
CPT/HCPCS: 99024

== ENCOUNTER 2023-02-09 16:01 | Outpatient (REF) | payer OTHER, SELFPAY | END 2023-02-09 16:02 | disposition home or self-care (01) | LOC: HO.HOSX 16:01 | PROVIDERS: Visit Provider Physician Assistant | DX: Z13.89 Encounter for screening for other disorder (principal) ==

== ENCOUNTER 2023-03-01 09:10 | Outpatient (REF) | payer OTHER, SELFPAY ==
--- NOTE | ~2023-03-01 | XR_ITS ---
EXAMINATION: XR HUMERUS, LEFT CLINICAL INFORMATION: Unspecified fracture of shaft of humerus, unspecified arm COMPARISON: 01/12/2023 left humerus, left elbow 12/29/2022 TECHNIQUE: AP and lateral views of the left humerus. FINDINGS: Postoperative changes are noted with plate and screw fixation along the distal humerus crossing the area of the previously noted humerus fracture. There is no change in position or alignment of the fracture fragments. The hardware remains intact. The elbow joint is unremarkable. Surrounding bone and soft tissues are unremarkable. XR/XR humerus LT IMPRESSION: Status post ORIF distal humerus fracture without evidence of hardware complication.
== END 2023-03-01 09:11 | disposition home or self-care (01) ==
LOC: HO.HOSX 09:10
PROVIDERS: Visit Provider Orthopaedic Surgery
DX: S42.402D Unspecified fracture of lower end of left humerus, subsequent encounter for fracture with routine healing (principal)
CPT/HCPCS: 73060

== ENCOUNTER 2023-03-01 09:47 | Outpatient (AMB) | payer OTHER, SELFPAY ==
--- NOTE | 2023-03-01 09:49 | MHC.OFFVIS ---
Intake Intake Visit Reasons: PO-left humerus fx-DOS 12/30/22 Intake Note: Karlo is a 33 year old -- hand dominant female who presents today for a post operative appointment, he is 2 months s/p Right Distal Humerus ORIF 12/30/2022. Pateint reports that he is doing well, he finds that he has some mild soreness in the bicep of the left arm . He finsds that he has stiffness of the elbow and has not reached full extension. Has not yet started PT Allergies No Known Allergies Allergy (Verified 01/12/23 13:26) HPI PO-left humerus fx-DOS 12/30/22 HPI Details Karlo is a 33 year old man who presents ~2 months S/P left distal humerus ORIF. He says he is doing well overall. He has some pain in his biceps and feels his elbow is still somewhat stiff. He says he works from home primarily. He has returned to the gym recently to work on lower-body exercises. He says he has not done any PT, but has been using his arm for light daily activities. [facility] Medical History At risk for abuse of opiates Social History Household Members: None Housing: House Do you presently have visiting nurse or other home services: No Alcohol intake: current Patient Tobacco Use Status: Current everyday Tobacco user e-Cigarette/Vaping Use: Currently Using Substance Use Type: Marijuana service: No Review of Systems Const All systems reviewed & are unremarkable except as noted in HPI and below Physical Exam Const General: no acute distress, alert and awake Orientation/consciousness: patient oriented x3 HEENT Head: Yes normocephalic and Yes atraumatic Eyes EOM: EOMs intact bilaterally Resp Effort & Inspection: normal respiratory effort and able to speak in complete sentences Cardio Jugular venous distension: no JVD Skin General skin exam: turgor normal Rashes: no rashes Neuro General: patient oriented x3 Extrem Other: Right Elbow: Well-healed incision _5 deg ROM at elbow Otherwsie nl exam Psych Appearance: grossly normal Affect: normal affect Attitude: cooperative Results Reviewed Results Reviewed: I personally reviewed relevant radiographs Healing left distal humerus fracture with satisfactory alignment and position of hardware, without complications. Assessment & Plan Assessment & Plan (1) Fracture of distal end of left humerus: Comment: Left distal humerus ORIF 12/30/2022 NE Code(s): S42.402A - Unspecified fracture of lower end of left humerus, initial encounter for closed fracture Qualifiers: Encounter type: subsequent encounter Fracture healing: with routine healing Fracture morphology: unspecified fracture morphology Fracture type: closed Qualified Code(s): S42.402D - Unspecified fracture of lower end of left humerus, subsequent encounter for fracture with routine healing Plan: This is a 33 year old man S/P left distal humerus ORIF, DOS: 12/30/22. He is doing well, with some stiffness and mild pain, which he finds tolerable. He has not started formal PT. I recommend he work on elbow extension exercises at home, and limit or avoid any lifting activities >5lbs for the next few months. I recommend he continue activity as tolerated, and he avoid any sports or impact activities such as skiing at this time. He will follow up in 3 months, with X-rays Plan Scribed for Edgar Miranda MD by Zack Torres, medical staff credentialing coordinator, on 03/01/23 at 10:10 AM, EST. Orders: Orders XR humerus LT Today S42.309A - Unspecified fracture of shaft of humerus, unspecified arm, initial encounter for closed fracture Coding Level of Care Code Global (23402) Diagnoses Closed fracture of distal end of left humerus with routine healing, unspecified fracture morphology, subsequent encounter S42.402D Encounter type: subsequent encounter Fracture healing: with routine healing Fracture morphology: unspecified fracture morphology Fracture type: closed
== END 2023-03-01 10:16 | disposition home or self-care (01) ==
PROVIDERS: Visit Provider Orthopaedic Surgery
DX: S42.402D Unspecified fracture of lower end of left humerus, subsequent encounter for fracture with routine healing (principal)
CPT/HCPCS: 99024

== ENCOUNTER 2023-03-05 21:24 | Emergency (ER) | payer OTHER, SELFPAY ==
--- NOTE | ~2023-03-05 | XR_ITS ---
EXAMINATION: XR HUMERUS, LEFT CLINICAL INFORMATION: Reason injured. Fall with pain COMPARISON: 03/01/2023 TECHNIQUE: AP and lateral views of the left humerus. FINDINGS: Unfortunately there is a new comminuted periprosthetic fracture through the mid diaphysis of the left humerus with distal lateral angulation of the distal diaphysis onward. There is plate and screw fixation of the distal humerus extending to the humeral condyles medially and laterally. The comminuted mid diaphyseal fracture occurs just above the plates. XR/XR humerus LT IMPRESSION: Comminuted periprosthetic fracture through the mid diaphysis of the left humerus with distal lateral angulation of the distal diaphysis onward. Plate and screw fixation of the distal humerus.
[2023-03-05 21:33] VITALS: BP 119/75; PULSE 70; RESP 18; TEMP 36.7; O2SAT 98; BMI 27.3
[2023-03-05] MEDS: Ketorolac Tromethamine 30 MG/ML VIAL IVPUSH (22:13)
[2023-03-05 23:16] VITALS: BP 111/76; PULSE 71; RESP 18; TEMP 36.6; O2SAT 98
--- NOTE | 2023-03-05 23:18 | MHC.EDTECH ---
Hourly rounds and vitals completed,patient is awaiting provider at this time to splint arm. Family at bedside and call ocampo within reach
--- NOTE | 2023-03-05 23:34 | ED_ITS ---
HPI - Extremity Problem General Chief complaint: Extremity Injury, Upper Stated complaint: broke arm 7 weeks ago, fell on arm today Time Seen by Provider: 03/05/23 22:05 Source: patient and family Mode of arrival: ambulatory Limitations: no limitations History of Present Illness HPI Narrative: Patient comes to the emergency room complaining of left humerus pain. Patient states that today he was playing soccer, felt on an outstretched hand and now has humerus pain. Of note, on 12/30/2022, patient had a left humeral ORIF. Patient states that he believes that he refractured his arm. Patient denies hitting his head or losing consciousness, patient denies being on blood thinners. Related Data Home Medications Medication Instructions Recorded Confirmed escitalopram oxalate 10 mg tablet 10 mg PO DAILY 12/29/22 12/29/22 (Lexapro) omeprazole magnesium 20 mg 20 mg PO DAILY 12/29/22 12/29/22 tablet,delayed release (Prilosec OTC) Previous Rx's Medication Instructions Recorded acetaminophen 325 mg tablet 650 mg (2 x 325 mg) PO Q6H PRN 12/31/22 Pain, Mild (Pain Scale 1-3) 30 days #240 tabs ketorolac 10 mg tablet 10 mg PO TID PRN pain #14 tabs 03/06/23 oxycodone 5 mg tablet 5 mg PO Q8H PRN pain #7 tabs 03/06/23 Allergies Allergy/AdvReac Type Severity Reaction Status Date / Time No Known Allergies Allergy Verified 01/12/23 13:26 Review of Systems Review of Systems: Constitutional : No Weight loss, No Fever, No Chills, No Night Sweats, No Fatigue, No Malaise ENT/Mouth : No Hearing loss, No Ear Pain, No Nasal Congestion, No Sinus Pain, No Hoarseness, No sore throat, No Rhinorrhea, No Swallowing Difficulty Eyes: No Eye Pain, No Swelling, No Redness, No Foreign Body, No Discharge, No Vision Changes Cardiovascular : No Chest Pain, No SOB, No Dyspnea on Exertion, No Orthopnea, No Edema, No Palpitations Respiratory : No Cough, No Sputum, No Wheezing, No Smoke Exposure, No Dyspnea Gastrointestinal : No Nausea, No Vomiting, No Diarrhea, No Constipation, No abdominal Pain, No Hematochezia, No Melena Genitourinary : no irregular bleeding, No Dysuria, No Urinary Frequency, No Hematuria, No Urinary Incontinence, No Urgency, No Flank Pain, No Urinary Flow Changes, No Hesitancy Musculoskeletal : Complaining of left humerus pain and swelling Skin : No Skin Lesions, No rash Neuro : No Weakness, No Numbness, No Paresthesias, No Loss of Consciousness, No Dizziness, No Headache Psych : No Anxiety/Panic, No Depression, No SI/HI/AH/VH, No Social Issues, Heme/Lymph: No Bruising, No Bleeding,No Lymphadenopathy Endocrine : No Polyuria, No Polydipsia, No Temperature Intolerance [facility] Past Medical History Medical History (Updated 03/05/23 @ 23:41 by Parris Valiente MD) Fracture of distal end of left humerus At risk for abuse of opiates Social History Social History Household Members: None Housing: House Do you presently have visiting nurse or other home services: No Alcohol intake: current Patient Tobacco Use Status: Current everyday Tobacco user e-Cigarette/Vaping Use: Currently Using Substance Use Type: Marijuana Advance Directives: No Advance Directives Information Provided: No service: No Physical Exam Vital Signs: Vital Signs: Last Vital Signs Temp 97.9 F 03/05/23 23:16 Pulse 71 03/05/23 23:16 Resp 18 03/05/23 23:16 BP 111/76 03/05/23 23:16 Pulse Ox 98 03/05/23 23:16 O2 Del Method Room Air 03/05/23 23:16 BMI result Body Mass Index 27.3 Const: Other: Appearance: Alert. Oriented X3. No acute distress. Eyes: Pupils equal, round and reactive to light. ENT: Pharynx normal. Neck: Normal inspection. Neck supple. No lymph nodes noted. No crepitus CVS: Normal heart rate and rhythm. Pulses normal. Normal S1 and S2 Respiratory: No respiratory distress. Breath sounds normal. No Wheezing. No rales Abdomen: Soft and nontender. No rigidity. No distention. Skin: Skin warm and dry. Normal skin color. Normal skin turgor. Extremities: Patient is able to flex and extend all fingers of the hand, no pain in the snuffbox, no wrist pain, no elbow pain, no shoulder pain. Patient has pain and swelling on palpation over the humerus/bicipital area. The biceps area is swollen. However, it is not tense, patient does not have pain out of proportion,, compartment syndrome not suspected Neuro: Oriented X 3. No motor deficit. No sensory deficit. Moving all extremities. No slurred speech. CN 2 through 12 grossly intact Psych: calm, cooperative, normal affect Medications Administered Discontinued Medications Generic Name Dose Route Start Last Admin Trade Name Natasha PRN Reason Stop Dose Admin Ketorolac Tromethamine 30 mg 03/05/23 22:10 03/05/23 22:13 Ketorolac Tromethamine 30 Mg/Ml Vial IVPUSH 03/05/23 22:11 30 mg ONCE ONE Administration Morphine Sulfate 4 mg 03/05/23 23:40 03/05/23 23:49 Morphine Sulfate 4 Mg/Ml Cartridge IVPUSH 03/05/23 23:41 4 mg ONCE ONE Administration Protocol Medical Decision Making Medical Decision Making [facility] Narrative: -my interpretation of x-ray of the humerus: The is a fracture through the mid diaphysis of the left humerus with angulation, there is previous screw fixation of distal humerus present -I discussed the patient with Dr. Miranda. Given that the patient is fairly comfortable with oral pain medication, patient can be discharged home after splinting and applying a sling, patient will likely need surgery in approximately 4 days. Patient instructed to call Dr. Miranda's office tomorrow -patient was given a dose of Dilaudid and morphine. Patient still feels okay to go home. -as mentioned above, patient has swelling in the biceps area. The muscle/scan are not tight, no pain out of proportion, compartment syndrome not suspected. I discussed with the patient signs and symptoms of compartment syndrome, patient instructed to call Dr. Miranda today for follow-up appointment. If the patient has any symptoms that may indicate compartment syndrome which were discussed with the patient, patient is to come immediately to the emergency room. Differential Diagnosis Differential Diagnoses: The differential diagnosis associated with the presentation includes (Elbow contusion, fracture, humerus fracture) Admission/Observation Consideration of admission/observation: Escalation of care including admission/observation considered (Admission was considered for pain control/possible surgery) Consult Healthcare Provider Management of the patient was discussed with: Heel Seat Trimmer Independent Interpretation I performed an independent interpretation of an: Plain X-Ray Radiology Impression Discussion of test interpretation with radiology: I have reviewed the radiolo gist's reading. Radiologist Impression: FINDINGS: Unfortunately there is a new comminuted periprosthetic fracture through the mid diaphysis of the left humerus with distal lateral angulation of the distal diaphysis onward. There is plate and screw fixation of the distal humerus extending to the humeral condyles medially and laterally. The comminuted mid diaphyseal fracture occurs just above the plates. XR/XR humerus LT IMPRESSION: Comminuted periprosthetic fracture through the mid diaphysis of the left humerus with distal lateral angulation of the distal diaphysis onward. Plate and screw fixation of the distal humerus. Critical Care Time Critical Care Time Critical Care Time: Yes Total Critical Care Time: 30 Attestation: I have personally provided critical care time. Time includes review of lab data, radiology results, discussion with consultants, and monitoring for potential decompensation. Intervention performed as documented. Discharge Plan Discharge Clinical Impression: Fracture, humerus Patient Disposition: Home, Self-Care Additional Instructions: Please follow-up with your primary care physician tomorrow. If you have any worsening or new symptoms, please return to the emergency room or call 911 Prescriptions: New ketorolac 10 mg tablet 10 mg PO TID PRN (Reason: pain) Qty: 14 0RF Rx Instructions: Do not use this medication with naproxen, ibuprofen. Only Tylenol/oxycodone if needed oxycodone 5 mg tablet 5 mg PO Q8H PRN (Reason: pain) Qty: 7 0RF Rx Instructions: Partial Fill upon patient request. No Action escitalopram oxalate [Lexapro] 10 mg Tablet 10 mg PO DAILY omeprazole magnesium [Prilosec OTC] 20 mg Tablet,Delayed Release (Dr/Ec) 20 mg PO DAILY acetaminophen 325 mg tablet 650 mg PO Q6H PRN (Reason: Pain, Mild (Pain Scale 1-3)) 30 Days Qty: 240 0RF
[2023-03-05] MEDS: Morphine Sulfate 4 MG/ML CARTRIDGE IVPUSH (23:49)
--- NOTE | 2023-03-06 00:42 | MHC.EDTECH ---
Assisted with splint procedure ,long arm and sugar tongue was applied, provider checked for placement after application of split This tech applied a sling afterwards per order, patient tolerated well and is awaiting discharge at this time.
[2023-03-06] MEDS: HYDROmorphone HCl 1 MG/ML SYRINGE IVPUSH (00:43)
== END 2023-03-06 00:56 | disposition home or self-care (01) ==
PROVIDERS: Emergency Provider Emergency Medicine
DX: S42.352A Displaced comminuted fracture of shaft of humerus, left arm, initial encounter for closed fracture (principal); W18.39XA Other fall on same level, initial encounter; Y93.66 Activity, soccer; Y92.9 Unspecified place or not applicable; Y99.9 Unspecified external cause status; M79.622 Pain in left upper arm
CPT/HCPCS: 73060; 96374; 96375; 99284; 99285; J1170; J1885; J2270

== ENCOUNTER 2023-03-06 14:25 | Outpatient (AMB) | payer OTHER, SELFPAY ==
--- NOTE | 2023-03-06 14:39 | A.OFFVIS_ITS ---
Intake Intake Visit Reasons: OV-Left Fracture, humerus-DOI 03/06/23 Allergies No Known Allergies Allergy (Verified 01/12/23 13:26) HPI OV-Left Fracture, humerus-DOI 03/06/23 HPI Details 33-year-old male who presents in the off ice today 2 months status post left distal humerus ORIF, which was performed on 12/30/[address] Miranda. The patient was seen in the ED on 03/05/2023 status post playing soccer and fell on his outstretched hand. Patient has no known allergy history. Patient is currently taking, as follows: -Acetaminophen 650 mg PO Q6H PRN -Escitalopram oxalate 10 mg PO daily -Ketorolac 10 mg PO TID PRN -Omeprazole magnesium 20 mg PO daily -Oxycodone 5 mg PO Q8H PRN Patient has no known medical history. Patient has a surgical history, as follows: -Left distal humerus ORIF 12/30/2022 Dr. Miranda [facility] Medical History (Updated 03/05/23 @ 23:41 by Parris Valiente MD) Fracture of distal end of left humerus At risk for abuse of opiates Social History Household Members: None Housing: House Do you presently have visiting nurse or other home services: No Alcohol intake: current Patient Tobacco Use Status: Current everyday Tobacco user e-Cigarette/Vaping Use: Currently Using Substance Use Type: Marijuana service: No Review of Systems Const All systems reviewed & are unremarkable except as noted in HPI and below Physical Exam Const General: cooperative, healthy appearing, comfortable, no acute distress, well developed, alert and awake Orientation/consciousness: patient oriented x3 HEENT Head: Yes normal to inspection, Yes normocephalic and Yes atraumatic Eyes General: appearance normal, both eyes and all related structures Neck Neck: Yes normal visual inspection and Yes no lymphadenopathy Resp Effort & Inspection: normal respiratory effort and able to speak in complete sentences Cardio Rate: regular rate Peripheral pulses: Peripheral pulses 2+ throughout GI Inspection: Yes normal to inspection Palpation (GI): Soft to palpation Skin General skin exam: no rashes or lesions noted Neuro General: patient oriented x3 Extrem Other: Left elbow: Left upper extremity is in a posterior splint. Able to make a closed fist with all digits. Able to abduct, adduct, finger cross, okay sign, and thumbs up with out deficit. Sensation intact. Psych Mental Status: mental status grossly normal Office Procedures Fracture Care Fracture Billing Code: Fracture Billing Code Assessment & Plan Assessment & Plan (1) Fracture of distal end of left humerus: Comment: Left distal humerus ORIF 12/30/2022 NE Code(s): S42.402A - Unspecified fracture of lower end of left humerus, initial encounter for closed fracture Qualifiers: Encounter type: subsequent encounter Fracture healing: with routine healing Fracture morphology: unspecified fracture morphology Fracture type: closed Qualified Code(s): S42.402D - Unspecified fracture of lower end of left humerus, subsequent encounter for fracture with routine healing (2) Fracture, humerus: Code(s): S42.309A - Unspecified fracture of shaft of humerus, unspecified arm, initial encounter for closed fracture Plan Mr. Chaudhary is a 33-year-old male who presents in the office today 2 months status post left distal humerus ORIF, which was performed on 12/30/[address] Miranda. The patient was seen in the ED on 03/05/2023 status post playing soccer and fell on his outstretched hand. Patient has no known allergy history. Patient is currently taking, as follows: -Acetaminophen 650 mg PO Q6H PRN -Escitalopram oxalate 10 mg PO daily -Ketorolac 10 mg PO TID PRN -Omeprazole magnesium 20 mg PO daily -Oxycodone 5 mg PO Q8H PRN Patient has no known medical history. Patient has a surgical history, as follows: -Left distal humerus ORIF 12/30/2022 Dr. Miranda I discussed in detail the procedure and what to expect pre and post operatively. We discussed the risks, benefits and alternatives to the surgery as well as the rehabilitation course. The risks; which include, but are not limited to infection, bleeding, nerve injury, ongoing pain, swelling, and stiffness, perioperative risk of injury to bones and soft tissues, and blood clots. I have answered all questions and with their understanding they have consented to move forward with a Left humerus ORIF to be performed on Sunday03/09/[address] Edgar Miranda. The patient was instructed to be NPO after midnight the night before surgery. Follow up will be at the post operative appointment, or sooner if needed. X-rays of the left upper extremity, obtained on 03/05/2023, revealed: Comminuted periprosthetic fracture through the mid diaphysis of the left humerus with distal lateral angulation of the distal diaphysis onward. Plate and screw fixation of the distal humerus. The patient would like for Mike- Girlfriend to be called after surgery: [phone] Patient Instructions: Scribed for Daphne Skinner PA-C by Karina Balderrama medical technologist, on 02/20/2023 at 2:28 pm, EST. Coding Level of Care Code Est Pt Level 4 (20584) Diagnoses Closed fracture of distal end of left humerus with routine healing, unspecified fracture morphology, subsequent encounter S42.402D Encounter type: subsequent encounter Fracture healing: with routine healing Fracture morphology: unspecified fracture morphology Fracture type: closed Fracture, humerus S42.309A CPT Codes Fracture Care - Fracture Billing Code: Fracture Billing Code ([id number])
== END 2023-03-06 14:38 | disposition home or self-care (01) ==
PROVIDERS: Visit Provider Physician Assistant
DX: S42.402D Unspecified fracture of lower end of left humerus, subsequent encounter for fracture with routine healing (principal); S42.302A Unspecified fracture of shaft of humerus, left arm, initial encounter for closed fracture
CPT/HCPCS: 99214

== ENCOUNTER → 2023-03-06 14:25 | Outpatient (BNVA) | payer OTHER, SELFPAY | PROVIDERS: Visit Provider Physician Assistant ==

== ENCOUNTER 2023-03-09 11:20 | Day surgery (SDC) | payer OTHER, SELFPAY ==
--- NOTE | 2023-03-08 10:07 | HO.ANESPROP2 ---
Documented by User: Katy Fuchs NP 03/08/23 10:08 HPI - Anesthesia Eval Consult details Narrative: 33yo M for Left Humerus Fx ORIF s/p same 12/30/22 with GA-ETT 7.5 PMFSH Active Problems Active Problems: All Active Problems (Updated 03/05/23 @ 23:41 by Parris Valiente MD) Fracture of distal end of left humerus (Acute) Fracture, humerus (Acute) Past Medical History Medical History Depression with anxiety GERD (gastroesophageal reflux disease) Fracture of distal end of left humerus At risk for abuse of opiates Family History Family history of problems with anesthesia: No Surgical History Surgical History Hx of foot surgery History of Problems with Anesthesia: No Social History Social History Household Members: None Housing: House Do you presently have visiting nurse or other home services: No Alcohol intake: current Patient Tobacco Use Status: Current everyday Tobacco user Tobacco use type: Smokeless Tobacco e-Cigarette/Vaping Use: Currently Using Substance Use Type: Marijuana service: No Meds Allergies Allergy/AdvReac Type Severity Reaction Status Date / Time No Known Allergies Allergy Verified 03/09/23 11:49 Home Medications Medication Instructions Recorded Confirmed Last Taken Type escitalopram oxalate 10 mg tablet 10 mg PO DAILY 12/29/22 03/09/23 03/09/23 09:30 History (Lexapro) omeprazole magnesium 20 mg 20 mg PO DAILY 12/29/22 03/09/23 03/09/23 09:30 History tablet,delayed release (Prilosec OTC) acetaminophen 325 mg tablet 650 mg PO Q6H PRN Pain, Mild (Pain 03/09/23 03/09/23 Unknown History (Tylenol) Scale 1-3) Assessment and Plan Assessment Anesthesia Assessment: Chart Reviewed Final Anesthetic Review Family History of Problems with Anesthesia: No History of Problems with Anesthesia: No Documented by User: Celia Aguero MD 03/09/23 13:04 [facility] Past Medical History Medical History Depression with anxiety GERD (gastroesophageal reflux disease) Fracture of distal end of left humerus At risk for abuse of opiates Surgical History Surgical History Hx of foot surgery Social History Social History Household Members: None Housing: House Do you presently have visiting nurse or other home services: No Alcohol intake: current Patient Tobacco Use Status: Current everyday Tobacco user Tobacco use type: Smokeless Tobacco e-Cigarette/Vaping Use: Currently Using Substance Use Type: Marijuana service: No Meds Allergies Allergy/AdvReac Type Severity Reaction Status Date / Time No Known Allergies Allergy Verified 03/09/23 11:49 Home Medications Medication Instructions Recorded Confirmed Last Taken Type escitalopram oxalate 10 mg tablet 10 mg PO DAILY 12/29/22 03/09/23 03/09/23 09:30 History (Lexapro) omeprazole magnesium 20 mg 20 mg PO DAILY 12/29/22 03/09/23 03/09/23 09:30 History tablet,delayed release (Prilosec OTC) acetaminophen 325 mg tablet 650 mg PO Q6H PRN Pain, Mild (Pain 03/09/23 03/09/23 Unknown History (Tylenol) Scale 1-3) Exam Airway Mallampati Class: II TM Dist: >3cm Neck ROM: Full Loose/Missing/Broken Teeth: No Heart: RRR Lungs: CTA Assessment and Plan Assessment Anesthesia Assessment: Anesthesia Plan Discussed Final Anesthetic Review NPO: Yes ASA Class: II Final Preanesthetic Review: Meds/Allgs Chart Reviewed, Consent Obtained/Reviewed and Anes Risks/Benef Reviewed Patient Risk: Low Procedure Risk: Intermediate Anesthetic Plan Anesthetic Plan: GA Disposition: Standard PACU
[2023-03-09] VITALS (7 sets, daily range): BP systolic 117–157; BP diastolic 66–96; PULSE 74–111; RESP 15–20; TEMP 36.2–36.8; O2SAT 95–100; BMI 27.7
--- NOTE | ~2023-03-09 | FL_ITS ---
EXAMINATION: XR FLUOROSCOPY WITH IMAGES CLINICAL INFORMATION: Fracture left humerus. COMPARISON: Left humerus CT and elbow x-ray January 10 TECHNIQUE: Fluoroscopy Supervised By: Dr. Edgar Miranda. Fluoroscopy Time: 0.4 minutes. Cumulative Dose: 1.12 mGy. DAP: 0.0195 Gycm2. Images: 6. FINDINGS: Fluoroscopy guidance provided for new plate and screw fixation and 2 cerclage wires of the transverse fracture of the mid humeral shaft just above prior fracture and hardware. There is improved alignment. FL/FL guidance in OR IMPRESSION: Fluoroscopy guidance for ORIF of left mid humeral shaft fracture
[2023-03-09] MEDS: Lactated Ringers 1,000 ML 100 ML IVCONT (12:37)
--- NOTE | 2023-03-09 16:29 | P.BOP_ITS ---
Brief Operative Note Date of Service: 03/09/23 Pre-op diagnosis: left humeral shaft fracture Post-op diagnosis: same Procedure: ORIF left humerus Implants: [place] 4.0 14 hole compression plate Surgeon: Edgar Miranda MD Anesthesia: GETA and regional Was an Betting Agency Manager used for this Procedure?: Yes Betting Agency Manager: Jose A Tai Estimated blood loss (mL): 150 IV fluids (mL): 1,000 Pathology: none sent Condition: stable Disposition: PACU
[2023-03-09] MEDS: ceFAZolin Sodium/Dextrose,Iso 2 GM/50 ML PIGGYBACK IV (17:04)
--- NOTE | 2023-03-29 21:46 | P.OP_ITS ---
Operative Note Operative Note Date of Service: 03/09/23 Narrative: Date of Service: 03/09/23 Pre-op diagnosis: left humeral shaft fracture Post-op diagnosis: same Procedure: ORIF left humerus Implants: [place] 4.0 14 hole compression plate Surgeon: Edgar Miranda MD Anesthesia: GETA and regional Was an Office Engineer used for this Procedure?: Yes Office Engineer: Jose A Tai Estimated blood loss (mL): 150 IV fluids (mL): 1,000 Pathology: none sent Condition: stable Disposition: PACU Patient was brought to the operating room and placed supine on the surgical table. She was prepped and draped in standard sterile fashion and a time out was called to indentify proper site, proper procedure and IV antibiotics per weight were administered.
== END 2023-03-09 17:53 | disposition home health service (06) ==
PROVIDERS: Visit Provider Orthopaedic Surgery
PROC: (CPT 24515; principal; 2023-03-09 13:00)
DX: S42.402A Unspecified fracture of lower end of left humerus, initial encounter for closed fracture (principal); W01.0XXA Fall on same level from slipping, tripping and stumbling without subsequent striking against object, initial encounter; F12.90 Cannabis use, unspecified, uncomplicated; F17.200 Nicotine dependence, unspecified, uncomplicated; Z79.899 Other long term (current) drug therapy; Y93.66 Activity, soccer; Y92.322 Soccer field as the place of occurrence of the external cause; Y99.9 Unspecified external cause status
CPT/HCPCS: 24515; C1713; J0131; J0665; J0690; J1100; J2250; J2405; J2704; J3010

== ENCOUNTER → 2023-03-09 11:20 | Outpatient (BNV) | payer OTHER, SELFPAY | PROVIDERS: Visit Provider Orthopaedic Surgery | DX: S42.352A Displaced comminuted fracture of shaft of humerus, left arm, initial encounter for closed fracture (principal) | CPT/HCPCS: 24515 ==

== ENCOUNTER 2023-03-14 14:37 | Outpatient (AMB) | payer OTHER, SELFPAY ==
--- NOTE | 2023-03-14 14:46 | MHC.OFFVIS ---
Intake Intake Visit Reasons: PO Lt humerus ORIF 03/09/23 NE Intake Note: Abdiel roblero 33 year old male presents today for a post operative left humerus ORIF, DOS 03/09/23 NE. Patient reports his pain level is currently 5 out of 10. Allergies No Known Allergies Allergy (Verified 03/14/23 14:47) HPI PO Lt humerus ORIF 03/09/23 NE HPI Details 33-year-old male who returns to the office today for post-op left humerus ORIF, 03/09/[address] Miranda. He continues to have pain in his left arm and currently rates the pain as 5 on the scale of 0-10. He is doing well otherwise and has no other concerns today. [facility] Medical History Depression with anxiety GERD (gastroesophageal reflux disease) Fracture of distal end of left humerus At risk for abuse of opiates Surgical History Hx of foot surgery Household Members: None Housing: House Do you presently have visiting nurse or other home services: No Alcohol intake: current Patient Tobacco Use Status: Current everyday Tobacco user Tobacco use type: Smokeless Tobacco e-Cigarette/Vaping Use: Currently Using Substance Use Type: Marijuana service: No Review of Systems Const All systems reviewed & are unremarkable except as noted in HPI and below Physical Exam Extrem Other: Left humerus: Incision clean, dry and intact. No redness or surrounding ecchymosis. There is some swelling along the incision site. He does have good pulses. He has good sensation over the anterior deltoid forearm and hand. He is able to perform wrist flexion & extension. He has good elbow ROM. Medial, ulnar and radial nerve sensation and function is intact. Assessment & Plan Assessment & Plan (1) Fracture, humerus: Code(s): S42.309A - Unspecified fracture of shaft of humerus, unspecified arm, initial encounter for closed fracture Qualifiers: Encounter type: subsequent encounter Humerus Location: shaft Fracture type: closed Fracture morphology: comminuted Fracture alignment: displaced Fracture healing: with routine healing Laterality: left Qualified Code(s): S42.352D - Displaced comminuted fracture of shaft of humerus, left arm, subsequent encounter for fracture with routine healing Plan Ben will remain intact for another week. A new joint dressing was applied to the incision area. He will keep this clean and dry and see us back in 1 week for potential ben out and x-rays, sooner if needed. Patient Instructions: Scribed for Jose A Tai PA-C, by Ricky Melgoza medical office specialist, on 03/14/2023 at 2:45 PM EST. I, Jose A Tai PA-C, have personally reviewed and agree with the information entered by the scribe. Coding Level of Care Code Global (25165) Diagnoses Closed displaced comminuted fracture of shaft of left humerus with routine healing, subsequent encounter S42.352D Encounter type: subsequent encounter Humerus Location: shaft Fracture type: closed Fracture morphology: comminuted Fracture alignment: displaced Fracture healing: with routine healing Laterality: left
== END 2023-03-14 15:06 | disposition home or self-care (01) ==
PROVIDERS: Visit Provider Physician Assistant
DX: S42.352D Displaced comminuted fracture of shaft of humerus, left arm, subsequent encounter for fracture with routine healing (principal)
CPT/HCPCS: 99024

== ENCOUNTER → 2023-03-14 14:37 | Outpatient (BNVA) | payer OTHER, SELFPAY | PROVIDERS: Visit Provider Physician Assistant ==

== ENCOUNTER 2023-03-22 12:15 | Outpatient (REF) | payer OTHER, SELFPAY | END 2023-03-22 12:16 | disposition home or self-care (01) | LOC: HO.HOSX 12:15 | PROVIDERS: Visit Provider Physician Assistant | DX: Z13.89 Encounter for screening for other disorder (principal) ==

== ENCOUNTER 2023-03-23 11:03 | Outpatient (REF) | payer OTHER, SELFPAY ==
--- NOTE | ~2023-03-23 | XR_ITS ---
EXAMINATION: XR HUMERUS, LEFT CLINICAL INFORMATION: History of humeral fracture. COMPARISON: Prior examinations, most recently 03/09/2023. TECHNIQUE: AP and lateral views of the left humerus. FINDINGS: There is stable alignment of a comminuted fracture of the mid and distal left humerus status-post ORIF, with intact fixator plates, screws and cerclage wires. No hardware failure or loosening is seen. Some callus formation is noted. There are posterior skin ben. The articulations at the shoulder and elbow are well-maintained. XR/XR humerus LT IMPRESSION: There is stable alignment of a comminuted fracture of the mid to distal left humerus status-post ORIF. No hardware failure or loosening is seen.
== END 2023-03-23 11:04 | disposition home or self-care (01) ==
LOC: HO.HOSX 11:03
PROVIDERS: Visit Provider Physician Assistant
DX: S42.402A Unspecified fracture of lower end of left humerus, initial encounter for closed fracture (principal)
CPT/HCPCS: 73060

== ENCOUNTER 2023-03-23 11:03 | Outpatient (AMB) | payer OTHER, SELFPAY ==
--- NOTE | 2023-03-23 11:33 | A.OFFVIS_ITS ---
Intake Intake Visit Reasons: PO Lt humerus ORIF 03/09/23 NE Intake Note: Karlo roblero 33 year old male presents today for a post operative left humerus ORIF, DOS 03/09/23 NE. Patient reports he is doing well, he has very little to no pain. States his pain is more of a cramp in his shoulder. Allergies No Known Allergies Allergy (Verified 03/23/23 11:34) HPI PO Lt humerus ORIF 03/09/23 NE HPI Details 33 yo male returns to the office today s /p ORIF left humerus. He states is pain is well managed and he has no concerns today. [facility] Medical History Depression with anxiety GERD (gastroesophageal reflux disease) Fracture of distal end of left humerus At risk for abuse of opiates Surgical History Hx of foot surgery Social History Household Members: None Housing: House Do you presently have visiting nurse or other home services: No Alcohol intake: current Patient Tobacco Use Status: Current everyday Tobacco user Tobacco use type: Smokeless Tobacco e-Cigarette/Vaping Use: Currently Using Substance Use Type: Marijuana service: No Review of Systems Const All systems reviewed & are unremarkable except as noted in HPI and below Physical Exam Extrem Other: Left humerus: Incision clean, dry and intact. No redness or surrounding ecchymosis. There is some swelling along the incision site. He does have good pulses. He has good sensation over the anterior deltoid forearm and hand. He is able to perform wrist flexion & extension. Elbow ROM -25-95 Medial, ulnar and radial nerve sensation and function is intact. Results Reviewed Results Reviewed: Xrays were obtained in the office today and personally reviewed by me of the left humerus show intact hardware with stable fracture Assessment & Plan Assessment & Plan (1) Fracture of distal end of left humerus: Comment: Left distal humerus ORIF 12/30/2022 [place] Code(s): S42.402A - Unspecified fracture of lower end of left humerus, initial encounter for closed fracture Qualifiers: Encounter type: subsequent encounter Fracture healing: with routine healing Fracture morphology: unspecified fracture morphology Fracture type: closed Qualified Code(s): S42.402D - Unspecified fracture of lower end of left humerus, subsequent encounter for fracture with routine healing Plan: Baldwin removed today, steri stips applies . An order for PT was ordered to begin ROM of the elbow. He will refrain from any type of impact or contact activities and no lifting with the left arm for 6 months . He will see us back in 6 weeks with xrays, sooner if needed. Orders: Orders XR humerus LT Today S42.402A - Unspecified fracture of lower end of left humerus, initial encounter for closed fracture PT Evaluation and Treatment Today S42.402A - Unspecified fracture of lower end of left humerus, initial encounter for closed fracture Coding Level of Care Code Global (48732) Diagnoses Closed fracture of distal end of left humerus with routine healing, unspecified fracture morphology, subsequent encounter S42.402D Encounter type: subsequent encounter Fracture healing: with routine healing Fracture morphology: unspecified fracture morphology Fracture type: closed
== END 2023-03-23 14:17 | disposition home or self-care (01) ==
PROVIDERS: Visit Provider Physician Assistant
DX: S42.402D Unspecified fracture of lower end of left humerus, subsequent encounter for fracture with routine healing (principal)
CPT/HCPCS: 99024

== ENCOUNTER 2023-04-30 08:22 | Outpatient (REF) | payer OTHER, SELFPAY ==
--- NOTE | ~2023-04-30 | XR_ITS ---
EXAMINATION: XR HUMERUS, LEFT CLINICAL INFORMATION: Left humerus, unspecified fracture of lower end of left humerus. COMPARISON: 03/23/2023 TECHNIQUE: AP and lateral views of the left humerus. FINDINGS: Redemonstration of orthopedic hardware with fixator plates, screws and cerclage wires transfixing previously noted comminuted fracture of the mid to distal left humerus. Skin ben have been removed. Similar alignment. Some callus formation is present. XR/XR humerus LT IMPRESSION: Redemonstration of orthopedic hardware transfixing healing comminuted fracture of the mid to distal left humerus. Hardware appears intact.
== END 2023-04-30 08:23 | disposition home or self-care (01) ==
LOC: HO.HOSX 08:22
PROVIDERS: Visit Provider Physician Assistant
DX: S42.402D Unspecified fracture of lower end of left humerus, subsequent encounter for fracture with routine healing (principal)
CPT/HCPCS: 73060

== ENCOUNTER 2023-04-30 09:06 | Outpatient (AMB) | payer OTHER, SELFPAY ==
--- NOTE | 2023-04-30 09:13 | MHC.OFFVIS ---
Intake Vital Signs 04/30/23 09:16 Height 5 ft 8 in Weight 180 lb BMI 27.4 Handedness Right Intake Visit Reasons: PO-ORIF left humerus w xrays 03/09/23 Intake Note: Karlo roblero 33 year old right hand domiant male presents today for a post operative left humerus ORIF, DOS 03/09/23 NE. Patient reports he is doing well, no pain or discomfort at the moment. He states that PT is going well he is able to flex a little bit more than before and he is seeing improvements. Allergies No Known Allergies Allergy (Verified 04/30/23 09:13) HPI PO-ORIF left humerus w xrays 03/09/23 HPI Details 33-year-old right hand dominant male who returns to the office today for post-op left humerus ORIF, 03/09/[address] Miranda. He states he has no pain at the moment and is doing well overall. He is working on physical therapy with benefits. He has no other concerns today. [facility] Medical History Depression with anxiety GERD (gastroesophageal reflux disease) Fracture of distal end of left humerus At risk for abuse of opiates Surgical History Hx of foot surgery Social History Household Members: None Housing: House Do you presently have visiting nurse or other home services: No Alcohol intake: current Patient Tobacco Use Status: Current everyday Tobacco user Tobacco use type: Smokeless Tobacco e-Cigarette/Vaping Use: Currently Using Substance Use Type: Marijuana service: No Review of Systems Const All systems reviewed & are unremarkable except as noted in HPI and below Physical Exam Vital Signs: BMI result Body Mass Index 27.4 Extrem Other: Left humerus: Incision well healed. No redness or surrounding ecchymosis. There is some swelling along the incision site. He does have good pulses. He has good sensation over the anterior deltoid forearm and hand. He is able to perform wrist flexion & extension. Elbow ROM -10-100 Medial, ulnar and radial nerve sensation and function is intact. Results Reviewed Results Reviewed: X-rays of the left humerus obtained in the office today show a healing fracture with intact orthopedic hardware. Assessment & Plan Assessment & Plan (1) Fracture of distal end of left humerus: Comment: Left distal humerus ORIF 12/30/2022 [place] Code(s): S42.402A - Unspecified fracture of lower end of left humerus, initial encounter for closed fracture Qualifiers: Encounter type: subsequent encounter Fracture healing: with routine healing Fracture morphology: unspecified fracture morphology Fracture type: closed Qualified Code(s): S42.402D - Unspecified fracture of lower end of left humerus, subsequent encounter for fracture with routine healing Plan He will continue working on ROM and gentle strengthening exercises. He will avoid impact activities and follow-up in 6 weeks with x-rays and Dr. Miranda, sooner if needed. Orders: Orders XR humerus LT Today S42.402A - Unspecified fracture of lower end of left humerus, initial encounter for closed fracture Patient Instructions: Scribed for Jose A Tai PA-C, by Ricky Melgoza manager medical device, on 04/2023 at 9:15 AM EST. I, Jose A Tai PA-C, have personally reviewed and agree with the information entered by the scribe. Coding Level of Care Code Global (00089) Diagnoses Closed fracture of distal end of left humerus with routine healing, unspecified fracture morphology, subsequent encounter S42.402D Encounter type: subsequent encounter Fracture healing: with routine healing Fracture morphology: unspecified fracture morphology Fracture type: closed
[2023-04-30 09:16] VITALS: BMI 27.4
== END 2023-04-30 09:43 | disposition home or self-care (01) ==
PROVIDERS: Visit Provider Physician Assistant
DX: S42.402D Unspecified fracture of lower end of left humerus, subsequent encounter for fracture with routine healing (principal)
CPT/HCPCS: 99024

== ENCOUNTER 2023-06-01 09:20 | Outpatient (REF) | payer OTHER, SELFPAY ==
--- NOTE | ~2023-06-01 | XR_ITS ---
EXAMINATION: XR HUMERUS, LEFT CLINICAL INFORMATION: Fracture COMPARISON: Left humerus radiograph from 04/30/2023 TECHNIQUE: AP and lateral views of the left humerus. FINDINGS: Redemonstration of multiple plate and screw fixation as well as cerclage wires of a left humeral diaphyseal fracture. Orthopedic hardware is grossly intact. Butterfly fragments redemonstrated. Joint space alignment are maintained. Soft tissues are unremarkable. XR/XR humerus LT IMPRESSION: 1. Redemonstration of multiple plate and screw fixation as well as cerclage wires of a left humeral diaphyseal fracture. Orthopedic hardware is grossly intact. 2. Butterfly fragments redemonstrated.
== END 2023-06-01 09:21 | disposition home or self-care (01) ==
LOC: HO.HOSX 09:20
PROVIDERS: Visit Provider Orthopaedic Surgery
DX: S42.352D Displaced comminuted fracture of shaft of humerus, left arm, subsequent encounter for fracture with routine healing (principal)
CPT/HCPCS: 73060

== ENCOUNTER 2023-06-01 09:40 | Outpatient (AMB) | payer OTHER, SELFPAY ==
--- NOTE | 2023-06-01 09:45 | MHC.OFFVIS ---
Intake Intake Visit Reasons: ov-S/p -left humerus fx-DOS 12/30/22 Intake Note: Karlo a 33 year old right hand dominant male presents today for a post operative appointment s/p left humerus ORIF, DOS 03/09/23 NE. At his last visit with Jose A he was instructed to continue ROM and Light strengthening exercises, no impact activties. Patient reports that he is doing well, he is getting stronger and ROM is increasing. Allergies No Known Allergies Allergy (Verified 04/30/23 09:13) HPI ov-S/p -left humerus fx-DOS 12/30/22 HPI Details Karlo is a 33 year old man who returns ~11 weeks S/P left humerus ORIF. He says he is doing well, he has been working on motion and lightweight daily activities. He reports feeling stronger and like his ROM has improved. [facility] Medical History Depression with anxiety GERD (gastroesophageal reflux disease) Fracture of distal end of left humerus At risk for abuse of opiates Surgical History Hx of foot surgery Social History Household Members: None Housing: House Do you presently have visiting nurse or other home services: No Alcohol intake: current Patient Tobacco Use Status: Current everyday Tobacco user Tobacco use type: Smokeless Tobacco e-Cigarette/Vaping Use: Currently Using Substance Use Type: Marijuana service: No Review of Systems Const All systems reviewed & are unremarkable except as noted in HPI and below Physical Exam Const General: no acute distress, alert and awake Orientation/consciousness: patient oriented x3 HEENT Head: Yes normocephalic and Yes atraumatic Eyes EOM: EOMs intact bilaterally Resp Effort & Inspection: normal respiratory effort and able to speak in complete sentences Cardio Jugular venous distension: no JVD Skin General skin exam: turgor normal Rashes: no rashes Neuro General: patient oriented x3 Extrem Other: inc c/d/i Full ROM shoulder 10-120 deg elbow ROM Psych Appearance: grossly normal Affect: normal affect Attitude: cooperative Results Reviewed Results Reviewed: I personally reviewed relevant radiographs. Left humeral shaft fractures healing. No hardware complications. Assessment & Plan Assessment & Plan (1) Fracture, humerus: Code(s): S42.309A - Unspecified fracture of shaft of humerus, unspecified arm, initial encounter for closed fracture Qualifiers: Encounter type: subsequent encounter Fracture alignment: displaced Fracture healing: with routine healing Fracture morphology: comminuted Fracture type: closed Humerus Location: shaft Laterality: left Qualified Code(s): S42.352D - Displaced comminuted fracture of shaft of humerus, left arm, subsequent encounter for fracture with routine healing Plan: Doing well ROM and gentle strengthening No sports or contact activitites Plan Prepared for Edgar Miranda MD by Zack Torres medical administrative, on 06/01/23 at 9:50 AM, EST. Orders: Orders XR humerus LT 06/01/23 S42.309A - Unspecified fracture of shaft of humerus, unspecified arm, initial encounter for closed fracture Coding Level of Care Code Global (79143) Diagnoses Closed displaced comminuted fracture of shaft of left humerus with routine healing, subsequent encounter S42.352D Encounter type: subsequent encounter Fracture alignment: displaced Fracture healing: with routine healing Fracture morphology: comminuted Fracture type: closed Humerus Location: shaft Laterality: left
== END 2023-06-01 10:04 | disposition home or self-care (01) ==
PROVIDERS: Visit Provider Orthopaedic Surgery
DX: S42.352D Displaced comminuted fracture of shaft of humerus, left arm, subsequent encounter for fracture with routine healing (principal)
CPT/HCPCS: 99024

== ENCOUNTER 2023-06-18 06:56 | Outpatient (REF) | payer OTHER, SELFPAY | END 2023-06-18 06:57 | disposition home or self-care (01) | LOC: HO.HOSX 06:56 | PROVIDERS: Visit Provider Orthopaedic Surgery | DX: Z13.89 Encounter for screening for other disorder (principal) ==

== ENCOUNTER 2023-08-31 09:19 | Outpatient (AMB) | payer OTHER, SELFPAY ==
--- NOTE | 2023-08-31 09:28 | MHC.OFFVIS ---
Vital Signs 08/31/23 09:34 Height 5 ft 8 in Weight 180 lb BMI 27.4 Intake Visit Reasons: ov-S/p -left humerus fx-DOS 12/30/22 Intake Note: Karlo a 33 year old right hand dominant male presents today for a post operative appointment s/p left humerus ORIF, DOS 03/09/23 NE. Patient reports that he is doing well, with no concerns at this time. He has improved with his ROM and Strength. He is done with formal physical therapy, but his completing a home exercise program Allergies No Known Allergies Allergy (Verified 04/30/23 09:13) HPI HPI ov-S/p -left humerus fx-DOS 12/30/22: Details: Karlo roblero 33 year old right hand dominant male presents today for a post operative appointment s/p left humerus ORIF, DOS 03/09/23 NE. Patient reports that he is doing well, with no concerns at this time. He has improved with his ROM and Strength. He is done with formal physical therapy, but his completing a home exercise program [facility] Medical History Depression with anxiety GERD (gastroesophageal reflux disease) Fracture of distal end of left humerus At risk for abuse of opiates Surgical History Hx of foot surgery Social History Household Members: None Housing: House Do you presently have visiting nurse or other home services: No Alcohol intake: current Patient Tobacco Use Status: Current everyday Tobacco user Tobacco use type: Smokeless Tobacco e-Cigarette/Vaping Use: Currently Using Substance Use Type: Marijuana service: No Physical Exam Vital Signs: BMI result Body Mass Index 27.4 Extrem Other: 5-125 deg motion inc c/d/i Results Reviewed Results Reviewed: I personally reviewed relevant radiographs. Healing left humeral shaft fracture with no hardware complications Assessment & Plan Assessment & Plan (1) Fracture of distal end of left humerus: Comment: Left distal humerus ORIF 12/30/2022 [place] Code(s): S42.402A - Unspecified fracture of lower end of left humerus, initial encounter for closed fracture Category: Medical Qualifiers: Encounter type: subsequent encounter Fracture type: closed Fracture morphology: unspecified fracture morphology Fracture healing: with routine healing Qualified Code(s): S42.402D - Unspecified fracture of lower end of left humerus, subsequent encounter for fracture with routine healing Plan: Healing and doign well f/u 3-4 months for final clearance Plan Follow up in 3-4 Months Orders: Orders XR humerus LT 08/31/23 S42.402D - Unspecified fracture of lower end of left humerus, subsequent encounter for fracture with routine healing Coding Level of Care Code Est Pt Level 3 (35848) Diagnoses Closed fracture of distal end of left humerus with routine healing, unspecified fracture morphology, subsequent encounter S42.402D Encounter type: subsequent encounter Fracture type: closed Fracture morphology: unspecified fracture morphology Fracture healing: with routine healing
[2023-08-31 09:34] VITALS: BMI 27.4
== END 2023-08-31 09:57 | disposition home or self-care (01) ==
PROVIDERS: Visit Provider Orthopaedic Surgery
DX: S42.402D Unspecified fracture of lower end of left humerus, subsequent encounter for fracture with routine healing (principal)
CPT/HCPCS: 99213

== ENCOUNTER 2023-08-31 10:56 | Outpatient (REF) | payer OTHER, SELFPAY ==
--- NOTE | ~2023-08-31 | XR_ITS ---
EXAMINATION: XR HUMERUS, LEFT CLINICAL INFORMATION: Fracture COMPARISON: Humerus radiographs 06/01/2023 TECHNIQUE: AP and lateral views of the left humerus. FINDINGS: Status post ORIF of the mid femoral diaphyseal fracture with bridging bony callus formation however persistent lucency of the fracture margins. No evidence of hardware fracture or complication. Joint spaces are maintained. Soft tissues are unremarkable. XR/XR humerus LT IMPRESSION: Status post ORIF of the mid femoral diaphyseal fracture with bridging bony callus formation however persistent lucency of the fracture margins. No evidence of hardware fracture or complication.
== END 2023-08-31 10:57 | disposition home or self-care (01) ==
LOC: HO.HOSX 10:56
PROVIDERS: Visit Provider Orthopaedic Surgery
DX: S42.402D Unspecified fracture of lower end of left humerus, subsequent encounter for fracture with routine healing (principal)
CPT/HCPCS: 73060

== ENCOUNTER 2023-12-03 08:22 | Outpatient (REF) | payer OTHER, SELFPAY | END 2023-12-03 08:23 | disposition home or self-care (01) | LOC: HO.HOSX 08:22 | PROVIDERS: Visit Provider Orthopaedic Surgery | DX: Z13.89 Encounter for screening for other disorder (principal) ==